=== PATIENT | female | born 1935 | race Caucasian/White ===

== ENCOUNTER → 2018-08-15 08:09 | Outpatient (CLI) | payer MEDICARE, OTHER, SELFPAY ==
[2018-08-15 08:15] LABS: Bacteria Urine None Seen
[2018-08-15 08:31] LABS: Add Manual Diff / Slide Review NO; Basophils Percent Auto 0.8 % (0-2); Eosinophils Percent Auto 2.3 % (2-4); Hemoglobin 12.3 g/dL (12.0-16.0); Lymphocytes Percent Auto 30.7 % (25-40); Mean Corpuscular HGB Conc 34.1 % (30-36); Mean Corpuscular Hemoglobin 31.4 PG (26-34); Mean Corpuscular Volume 92.1 fL (80-100); Monocytes Percent Auto 6.5 % (3-14); Neutrophils Absolute Auto 2800 /uL (3000-5900); Neutrophils Percent Auto 59.7 % (50-75); Platelet Count 196 X10^3/uL (150-400); Red Blood Cell Count 3.91 X10^6/uL (4.0-5.2); Red Cell Distribution Width 13.2 % (11.6-14.8); White Blood Cell Count 4.7 X10^3/uL (4.5-11.0)
[2018-08-15 08:44] LABS: Alanine Aminotransferase 27 IU/L (9-52); Albumin 4.2 g/dL (3.5-5.0); Albumin Globulin Ratio 1.4 (1.0-2.8); Alkaline Phosphatase 75 U/L (38-126); Aspartate Aminotransferase 26 IU/L (14-36); Bilirubin Total 0.5 mg/dL (0.2-1.3); Blood Urea Nitrogen 24 mg/dL (7-17); Carbon Dioxide 30 mmol/L (22-32); Chloride 104 mmol/L (98-107); Cholesterol 147 mg/dL (140-199); Estimated Glomerular Filt Rate 53.2 mL/min (>60); Globulin 2.9 g/dL (1.7-4.1); Glucose 123 mg/dL (80-110); HDL Cholesterol 48 mg/dL (40-60); HEMOLYSIS < 15 (0-50); LDL Cholesterol Calculated 75 mg/dL (<100); Magnesium 1.7 mg/dL (1.6-2.3); Sodium 145 mmol/L (137-145); Total Protein 7.1 g/dL (6.3-8.2); Triglycerides 120 mg/dL (35-150)
[2018-08-15 09:06] LABS: Appearance Urine UA CLEAR; Bilirubin Urine UA NEGATIVE (NEGATIVE); Color Urine UA YELLOW; Glucose Urine UA NEGATIVE (Normal); Ketones Urine UA NEGATIVE (NEGATIVE); Leukocyte Esterase Urine UA TRACE (NEGATIVE); Nitrite Urine UA Negative (Negative); Occult Blood Urine UA 1+ (Negative); Protein Urine UA NEGATIVE (Negative); Urobilinogen Urine UA 0.2 E.U./dL (0.2)
[2018-08-15 09:10] LABS: RBC Urine 1-5/HPF (0-5/HPF)
[2018-08-15 09:11] LABS: Culture Indicated Urine Specimen Cultured; Squamous Epithelial Cell Urine 1-5 /HPF; WBC Urine 5-10/HPF (0-5/HPF)
[2018-08-15 09:53] LABS: Thyroid Stimulating Hormone 2.43 uIU/mL (0.47-4.68)
== END ==
PROVIDERS: PCP Internal Medicine; Visit Provider Internal Medicine
DX: E78.5 Hyperlipidemia, unspecified (principal); G62.9 Polyneuropathy, unspecified; I10 Essential (primary) hypertension; I25.10 Atherosclerotic heart disease of native coronary artery without angina pectoris; K21.9 Gastro-esophageal reflux disease without esophagitis; K58.9 Irritable bowel syndrome, unspecified; R32 Unspecified urinary incontinence; R73.09 Other abnormal glucose
CPT/HCPCS: 36415; 80053; 80061; 81001; 83036; 83735; 84443; 85025; 87086

== ENCOUNTER → 2019-02-07 09:55 | Outpatient (CLI) | payer MEDICARE, OTHER, SELFPAY ==
--- NOTE | 2019-02-07 09:57 | DI.RAD.S_ITS ---
PROCEDURE: XR CHEST 2V INDICATIONS: cough TECHNIQUE: 2 views of the chest were acquired. COMPARISON: [facility], , CHEST 2 VIEW, 04/24/2017, 18:09. FINDINGS: Surgical changes and devices: None. Lungs and pleura: Biapical scars. Lungs are otherwise clear. No pleural effusions or pneumothorax. Mediastinum: Mediastinal contours are normal. Heart size is normal. Bones and chest wall: No suspicious bony abnormalities. Soft tissues appear unremarkable. IMPRESSION: No acute cardiopulmonary disease. Dictated by: Kelby Poewll M.D. on 02/07/2019 at 11:09 Approved by: Kelby Powell M.D. on 02/07/2019 at 11:09
== END ==
PROVIDERS: Family Provider Internal Medicine; PCP Internal Medicine; Visit Provider Nurse Practitioner Family
DX: R05 Cough (principal); J20.9 Acute bronchitis, unspecified
CPT/HCPCS: 71046

== ENCOUNTER 2019-03-09 20:12 | Emergency (ER) | payer MEDICARE, OTHER, SELFPAY ==
[2019-03-09 20:21] VITALS: BP 132/78; PULSE 83; RESP 14; TEMP 36.4; O2SAT 97
[2019-03-09] MEDS: ONDANSETRON 4 MG ODT PO (21:13)
[2019-03-09 21:16] LABS: RBC Urine None Seen (0-5/HPF)
[2019-03-09 21:31] LABS: Bacteria Urine Occasional (0-1); Culture Indicated Urine Specimen Cultured; WBC Urine 0-1/HPF (0-5/HPF)
--- NOTE | 2019-03-09 21:49 | ED_ITS ---
HPI - Nausea/Vomiting/Diarrhea General Chief complaint: Nausea/Vomiting/Diarrhea Stated complaint: H pylori, states she is feeling worse Time Seen by Provider: 03/09/19 21:13 Source: patient Mode of arrival: ambulatory Limitations: no limitations History of Present Illness HPI Narrative: Patient is an 83-year-old female who 5 days ago was started on clarithromycin, amoxicillin, Flagyl and Nexium. She states that this was because she gave a stool sample for evaluation of constipation and a came back positive for H pylori. She states that she has had problems with heartburn or reflux in the past but that is not admission now. She states that since she started taking these medications she has not felt well. She states the specially the Flagyl is causing her issues. Has had some nausea and vomiting. Has had multiple episodes of nonbloody ever foul-smelling diarrhea. Some cramping in her abdomen around the time of the diarrhea. Related Data Home Medications Medication Instructions Recorded Confirmed ASPIRIN (#ASPIR 81) 81 mg PO Q DAY #0 04/02/12 02/07/19 acetaminophen [Tylenol Extra 500 mg PO Q6HP PRN #0 01/10/17 02/07/19 Strength] latanoprost 1 drp [facility] HS #7 01/10/17 02/07/19 amoxicillin 1,000 mg PO BID 03/09/19 03/09/19 clarithromycin 1 tab PO BID 03/09/19 03/09/19 escitalopram oxalate 20 mg PO DAILY 03/09/19 03/09/19 metronidazole 500 mg PO BID 03/09/19 03/09/19 Previous Rx's Medication Instructions Recorded potassium chloride 15 meq PO QDAY #90 cap 01/10/17 isosorbide mononitrate 30 mg PO QAM #90 tab 10/16/17 esomeprazole magnesium 20 mg PO EVERY OTHER DAY #45 cap 02/27/18 chlorthalidone 0 PO QDAY #45 tab 03/06/18 losartan 50 mg PO QDAY #90 tab 10/11/18 metoprolol succinate ER 25 mg 25 mg PO QDAY #90 ter 10/16/18 tablet,extended release 24 hr atorvastatin [Lipitor] 40 mg PO QDAY #90 tab 12/04/18 albuterol sulfate HFA 90 2 puff INHALATION Q6H PRN #8.5 gram 03/14/19 mcg/actuation aerosol inhaler ondansetron HCl [Zofran] 4 mg PO Q6-8H PRN #14 tab 03/09/19 Allergies Allergy/AdvReac Type Severity Reaction Status Date / Time ciprofloxacin Allergy Mild HIVES Verified 03/09/19 20:27 codeine Allergy Mild WELTS Verified 03/09/19 20:27 Review of Systems Constitutional Denies fever(s) and Denies headache(s) ENT Ears, Nose, Mouth, and Throat: Denies headache(s) Cardiovascular Denies chest pain and Denies dyspnea Respiratory Denies dyspnea Gastrointestinal Gastrointestinal: Reports change in bowel habits, Reports diarrhea and Reports nausea Genitourinary Denies dysuria Musculoskeletal Denies myalgias and Denies arthralgias Integumentary/Breasts Denies rash Neurologic Denies headache(s) Hematologic/Lymphatic Denies easy bleeding and Denies easy bruising Allergic/Immunologic Denies urticaria [facility] Medical History Acne (Chronic ~1950) Anxiety (Chronic ~1968) Cataracts, bilateral (Chronic) Chronic back pain (Chronic ~2004) Chronic cough (Chronic ~2013) Coronary artery disease (Chronic ~1995) Depression (Chronic ~1968) Endometriosis (Chronic ~1954) GERD (gastroesophageal reflux disease) (Chronic) Headache (Chronic) Hearing deficit (Chronic) History of urinary incontinence (Chronic ~2013) Hyperlipidemia (Chronic) Hypertension (Chronic ~1995) Hypothyroidism (Chronic) Restless leg syndrome (Chronic) Seasonal allergies (Chronic ~2001) Shoulder pain (Chronic ~2009) Tinnitus (Chronic ~1999) Vision disorder (Chronic) Chicken pox (Resolved ~1939) Measles (Resolved ~1939) Mumps (Resolved ~1939) Rubella (Resolved ~1939) Myocardial infarction (Inactive ~1995) Surgical History Anesthesia (Resolved) History of shoulder surgery (Resolved ~11/2014) History of angioplasty (~1995) History of cataract removal with insertion of prosthetic lens (~2010) History of tonsillectomy (~1946) Status post appendectomy (~1956) Status post breast biopsy (~1952) Status post breast biopsy (~1958) Status post hysterectomy with oophorectomy (~1977) Family History (Updated 06/07/16 @ 00:00 by Conversion Provider) Brother Heart disease Father Heart disease Mother Cancer Grandmother Cancer Sister Heart disease Brother No problems noted. Sister No problems noted. Social History Smoking Status: Never smoker Family History Brother Heart disease Father Heart disease Mother Cancer Grandmother Cancer Sister Heart disease Brother No problems noted. Sister No problems noted. Social History Smoking Status: Never smoker Exam Initial Vital Signs Initial Vital Signs: Vital Signs Temperature 97.6 F 03/09/19 20:21 Pulse Rate 83 03/09/19 20:21 Respiratory Rate 14 03/09/19 20:21 Blood Pressure 132/78 03/09/19 20:21 Pulse Oximetry 97 03/09/19 20:21 Const General: cooperative, healthy appearing, comfortable, well developed and well groomed Orientation: alert, awake and oriented x3 HENMT Head: normal to inspection and normocephalic Resp Effort & Inspection: normal respiratory effort Cardio Rate: regular rate GI Inspection: non-distended Skin Lesions: no lesions Rashes: no rashes Neuro General: alert, awake and oriented x3 Cognition: normal cognition Speech: speech normal Extrem General: normal to inspection and capillary refill normal Psych Appearance: grossly normal and well kempt Scores GCS [place] coma scale eye opening: Spontaneous [place] coma scale verbal response: Orientated [place] coma scale motor response: Obey commands [place] coma scale total score: 15 Course Orders Ordered: ED Orders 03/09/19 21:00 GI Panel (Film Array) Stat 03/09/19 21:03 Urine Culture Stat Urine Microscopic Stat Discontinued Medications Ondansetron HCl (Zofran Odt) 4 mg PO NOW ONE Stop: 03/09/19 21:13 Last Admin: 03/09/19 21:13 Dose: 4 mg Ondansetron HCl (Zofran Odt Prepack) 1 bottle MISC SEEINSTR ONE Stop: 03/09/19 22:53 Last Admin: 03/09/19 23:08 Dose: 1 bottle Vital Signs - 8 hr 03/09/19 20:21 03/09/19 21:53 03/09/19 23:12 Temperature 97.6 F 97.1 F L Pulse Rate 83 64 61 Respiratory Rate 14 17 16 Blood Pressure 132/78 138/65 Blood Pressure [Left Arm] 135/71 Pulse Oximetry 97 97 96 MDM - Nausea/Vomiting/Diarrhea Lab Data Attestation: I reviewed the patient's lab results. Lab Results 03/09/19 03/09/19 Range/Units 21:00 21:03 Urine RBC None seen (0-5/HPF) Urine WBC 0-1/hpf (0-5/HPF) Urine Bacteria Occasional (0-1) (None) Ur Culture Indicated? Specimen cultured Stl C. cayetanensis PCR Not detected (Not Detect) Stool Rotavirus (PCR) Not detected (Not Detect) Stool Adenovirus (PCR) Not detected (Not Detect) Stool Astrovirus (PCR) Not detected (Not Detect) Stool Cryptosporidium PCR Not detected (Not Detect) Stl E.coli Shiga Tox PCR Not detected (Not Detect) St Sh/Enteroin Ecoli PCR Not detected (Not Detect) Stool E coli O157 PCR Not Reportable Stl Enterotoxigenic E PCR Not detected (Not Detect) Stool EPEC (PCR) Not detected (Not Detect) Stl E. histolytica PCR Not detected (Not Detect) Stool Giardia Lamblia PCR Not detected (Not Detect) Stool Sapovirus (PCR) Not detected (Not Detect) Stl P. shigelloides PCR Not detected (Not Detect) St Y.enterocolitica PCR Not detected (Not Detect) Stool Vibrio (PCR) Not detected (Not Detect) Stl Vibrio cholerae PCR Not detected (Not Detect) Stl Enteroaggr Ecoli PCR Not detected (Not Detect) Stl Norovirus GI/GII PCR Not detected (Not Detect) Campylobacter (PCR) Not detected (Not Detect) C. difficile Tox (PCR) Not detected (Not Detect) Salmonella (PCR) Not detected (Not Detect) Urine Dip Bedside Urine Glucose Negative Bedside Urine Bilirubin - Negative Bedside Urine Ketone - Negative Urine Specific [place] 1.030 Bedside Urine Occult Blood - Negative Bedside Urine pH 6.0 Bedside Urine Protein - Negative Bedside Urine Urobilinogen +/- 1mg Bedside Urine Nitrite - Negative Bedside Urine Leukocytes + 70 Esterase MDM Narrative Medical decision making narrative: Patient's stool studies here in the emergency department negative for C diff for other infectious etiology. I do suspect that this diarrhea secondary to the antibiotics that she is on for the H pylori. It seems to be that the Flagyl is the biggest issue for her. There is a regimen that includes clarithromycin amoxicillin and Nexium which is what she is on but minus the Flagyl. Given her extreme discomfort with this medication and the acceptable regiment that does not include Flagyl informed her that she could stop this medication. We did discuss the importance of staying hydrated. informed her that she needed to call her primary doctor on Monday. We discussed return precautions. Both her and her expressed understanding and agreement with plan. Discharge Plan Departure Patient Disposition: Home Clinical Impression: Diarrhea Qualifiers: Diarrhea type: unspecified type Qualified Code(s): R19.7 - Diarrhea, unspecified Discharge Date/Time: 03/09/19 23:12 Interventions: ED Discharge Assessment Last Done: 03/09/19 23:12 Instructions: Diarrhea (Alternative Therapy), Diarrhea Activity Restrictions/Additional Instructions: Use the nausea medication as needed. Be sure to increase your fluid intake. You can stop the metronidazole/Flagyl. I would continue to take the other medication. Call your primary provider's office on Monday. Return to the emergency department for any new or worsening symptoms Prescriptions: New ondansetron HCl [Zofran] 4 mg tablet 4 mg PO Q6-8H PRN (Reason: nausea and vomiting) Qty: 14 RF: 0 No Action albuterol sulfate 90 mcg/actuation HFA aerosol inhaler 2 puff INHALATION Q6H PRN (Reason: shortness of breath or wheezing) Qty: 8.5 RF: 0 ASPIRIN (#ASPIR 81) 81 mg PO Q DAY Qty: 0 RF: 0 potassium chloride 10 MEQ capsule, extended release 15 meq PO QDAY Qty: 90 RF: 3 latanoprost 0.005 % drops 1 drp OPHTH HS Qty: 7 RF: 0 acetaminophen [Tylenol Extra Strength] 500 MG tablet 500 mg PO Q6HP PRNQty: 0 RF: 0 isosorbide mononitrate 30 MG tablet extended release 24 hr 30 mg PO QAM Qty: 90 RF: 3 esomeprazole magnesium 20 MG capsule,delayed release(DR/EC) 20 mg PO EVERY OTHER DAY Qty: 45 RF: 3 chlorthalidone 25 MG tablet PO QDAY Qty: 45 RF: 3 losartan 50 mg tablet 50 mg PO QDAY Qty: 90 RF: 3 metoprolol succinate [Toprol XL] 25 mg tablet extended release 24 hr 25 mg PO QDAY Qty: 90 RF: 3 atorvastatin [Lipitor] 40 mg tablet 40 mg PO QDAY Qty: 90 RF: 0 clarithromycin 500 mg tablet 1 tab PO BID RF: 0 metronidazole 500 mg tablet 500 mg PO BID RF: 0 amoxicillin 500 mg tablet 1,000 mg PO BID RF: 0 escitalopram oxalate 20 mg tablet 20 mg PO DAILY RF: 0 Referrals: Sharonda Cervantes ARNP [Primary Care Provider] -
[2019-03-09 21:53] VITALS: BP 135/71; PULSE 64; RESP 17; O2SAT 97
[2019-03-09 22:42] LABS: Campylobacter Not Detected (Not Detect); Clostridium difficile toxin AB Not Detected (Not Detect); Plesiomonsa shigelloides Not Detected (Not Detect); Salmonella Not Detected (Not Detect); Vibrio Not Detected (Not Detect); Vibrio cholerae Not Detected (Not Detect)
[2019-03-09 22:43] LABS: Adenovirus F 40/41 Not Detected (Not Detect); Astrovirus Not Detected (Not Detect); Cryptosporidium Not Detected (Not Detect); Cyclospora cayetanensis Not Detected (Not Detect); Entamoeba histolytica Not Detected (Not Detect); Enteroaggregative E.coli Not Detected (Not Detect); Enteropathogenic E.coli Not Detected (Not Detect); Enterotoxigenic E.coli It/st Not Detected (Not Detect); Giardia lamblia Not Detected (Not Detect); Norovirus GI/GII Not Detected (Not Detect); Rotavirus A Not Detected (Not Detect); Sapovirus Not Detected (Not Detect); Shiga-like toxin-prod E.coli Not Detected (Not Detect); Shigella/Enteroinvasive E.coli Not Detected (Not Detect); Yersinia enterocolitica Not Detected (Not Detect)
[2019-03-09] MEDS: ONDANSETRON 4 MG ODT PREPACK 1 BOTTLE MISC (23:08)
[2019-03-09 23:12] VITALS: BP 138/65; PULSE 61; RESP 16; TEMP 36.2; O2SAT 96
== END 2019-03-09 23:12 | disposition home or self-care (01) ==
PROVIDERS: Emergency Provider Emergency Medicine; PCP Internal Medicine
DX: R19.7 Diarrhea, unspecified (principal); R11.2 Nausea with vomiting, unspecified
CPT/HCPCS: 81003; 81015; 87086; 87507; 99282; 99283

== ENCOUNTER → 2020-01-09 13:56 | Outpatient (CLI) | payer MEDICARE, OTHER, SELFPAY ==
--- NOTE | 2020-01-09 | DI.CT.S_ITS ---
PROCEDURE: CT CHEST WO CON INDICATIONS: Cough TECHNIQUE: Noncontrast 5 mm thick sections acquired from the pulmonary apices to the posterior costophrenic angles. 1 mm lung window, 5 mm thick coronal and sagittal and 7 mm axial MIP reformats were then acquired. For radiation dose reduction, the following was used: automated exposure control, adjustment of mA and/or kV according to patient size. COMPARISON: [facility], CT, CHEST/ABDOMEN WITHOUT CONTRAST, 12/04/2015, 8:28. FINDINGS: Image quality: Excellent. Lungs and pleura: No acute air space opacities. No pleural effusions or pneumothorax. Central and peripheral airways are patent and normal in caliber. Mediastinum: Heart size is normal. No pericardial effusion. Advanced coronary artery calcifications. No mediastinal adenopathy by size criteria. Thoracic aorta and central pulmonary arteries are normal in size. Esophagus is normal in caliber. No hiatal hernia. Bones and chest wall: No suspicious bony lesions. No vertebral body compression fractures. No axillary or supraclavicular adenopathy by size criteria. Thyroid gland is unremarkable. Abdomen: Visualized upper abdominal solid organs and bowel loops appear normal in the absence of contrast. IMPRESSION: 1. No evidence acute pulmonary process. 2. No findings suspicious for malignancy. 3. Advanced coronary artery calcifications. Dictated by: Brian Cottrell M.D. on 01/09/2020 at 17:20 Approved by: Brian Cottrell M.D. on 01/09/2020 at 17:23
== END ==
PROVIDERS: PCP Internal Medicine; Referring Provider Internal Medicine; Visit Provider Internal Medicine
DX: R05 Cough (principal); R06.2 Wheezing; I25.10 Atherosclerotic heart disease of native coronary artery without angina pectoris
CPT/HCPCS: 71250

== ENCOUNTER → 2020-07-28 11:24 | Outpatient (CLI) | payer MEDICARE, OTHER, SELFPAY ==
--- NOTE | 2020-07-28 | DI.MRI.S_ITS ---
PROCEDURE: MR HEAD/BRAIN WO/W CON INDICATIONS: Other hallucinations,Headache TECHNIQUE: Noncontrast axial T1 spin echo, axial T2 fast spin echo, sagittal and axial FLAIR, coronal T2 fast spin echo, axial gradient echo, axial diffusion and ADC through the brain. After the administration of contrast, axial and coronal T1 spin echo with fat saturation through the brain. COMPARISON: [facility], MR, BRAIN W&WO CONTRAST, 01/14/2016, 15:44. [facility], MR, BRAIN WITH AND WITHOUT CONTRAS, 01/12/2007, 8:35. FINDINGS: Image quality: Excellent. CSF spaces: Basal cisterns are patent. No extra-axial fluid collections. Ventricles are normal in size and shape. Brain: No midline shift. No intracranial bleeds or masses. No abnormal intracranial enhancement. There is cerebral volume loss for age. There is periventricular white matter chronic small vessel ischemic change. The brainstem appears normal. Diffusion-weighted images demonstrate no acute ischemic insults. No chronic ischemic insults. Normal intravascular flow voids are present. Skull and face: Calvarial marrow is normal in signal. Orbits appear normal. Sinuses: Sinuses and mastoids appear clear. IMPRESSION: Mild microvascular atherosclerotic change in the deep white matter of each hemisphere, no area of stroke or prior ischemic injury is seen. There is no identified evidence of mass lesion or brain inflammation. Dictated by: Kj Hollingsworth M.D. on 07/28/2020 at 12:35 Approved by: Kj Hollingsworth M.D. on 07/28/2020 at 12:36
== END ==
PROVIDERS: PCP Internal Medicine; Referring Provider Internal Medicine; Visit Provider Internal Medicine
DX: R44.2 Other hallucinations (principal); R51 Headache
CPT/HCPCS: 70553

== ENCOUNTER → 2021-03-04 10:20 | Outpatient (CLI) | payer MEDICARE, OTHER, SELFPAY ==
--- NOTE | 2021-03-04 | DI.RAD.S_ITS ---
PROCEDURE: XR CERVICAL SPINE 2V OR 3V INDICATIONS: NECK PAIN TECHNIQUE: 3 view(s) of the cervical spine were acquired. COMPARISON: [facility], RG, XR C-SPINE 4-6V, 02/22/2006, 10:24. [facility], MR, C-SPINE WITHOUT CONTRAST, 06/08/2017, 14:59. FINDINGS: Bones: No fractures or dislocations to the C7 level. The lateral masses of C1 appear intact on the odontoid view. No suspicious bony lesions. There is moderate degenerative disc disease at C4-C5, C5-C6 and C6-C7. Bilateral facet arthropathy, moderate at C3-C4 and C4-C5. Soft tissues: No prevertebral soft tissue swelling. IMPRESSION: 1. Moderate degenerative disc and facet disease in cervical spine. Dictated by: Kelby Powell M.D. on 03/04/2021 at 13:57 Approved by: Kelby Powell M.D. on 03/04/2021 at 14:18
== END ==
PROVIDERS: PCP Internal Medicine; Referring Provider Internal Medicine; Visit Provider Internal Medicine
DX: M50.321 Other cervical disc degeneration at C4-C5 level (principal)
CPT/HCPCS: 72040

== ENCOUNTER → 2021-09-21 09:50 | Outpatient (CLI) | payer MEDICARE, OTHER, SELFPAY ==
[2021-09-21 12:12] LABS: Hemoglobin 11.7 g/dL (12.0-16.0); Mean Corpuscular HGB Conc 33.5 % (30-36); Mean Corpuscular Hemoglobin 31.5 PG (26-34); Mean Corpuscular Volume 94.1 fL (80-100); Platelet Count 191 X10^3/uL (150-400); Red Blood Cell Count 3.72 X10^6/uL (4.0-5.2); Red Cell Distribution Width 13.6 % (11.6-14.8); White Blood Cell Count 4.9 X10^3/uL (4.5-11.0)
[2021-09-21 12:50] LABS: Blood Urea Nitrogen 19 mg/dL (7-17); Calcium 9.9 mg/dL (8.4-10.2); Carbon Dioxide 30 mmol/L (22-32); Chloride 102 mmol/L (98-107); Glucose 107 mg/dL (80-110); HEMOLYSIS < 15 (0-50); Potassium 4.2 mmol/L (3.4-5.1); Sodium 140 mmol/L (137-145)
== END ==
PROVIDERS: PCP Internal Medicine; Referring Provider Internal Medicine Cardiovascular Disease; Visit Provider Internal Medicine Cardiovascular Disease
DX: R06.00 Dyspnea, unspecified (principal)
CPT/HCPCS: 36415; 80048; 85027

== ENCOUNTER → 2022-02-23 10:47 | Outpatient (CLI) | payer MEDICARE, OTHER, SELFPAY ==
--- NOTE | 2022-02-23 | DI.RAD.S_ITS ---
PROCEDURE: XR HIP W PEL IF DONE RT 2V INDICATIONS: RIGHT HIP PAIN/ LOW BACK PAIN TECHNIQUE: AP pelvis with lateral view(s) of the right hip(s). COMPARISON: None. FINDINGS: Bones: No fractures or dislocations. Pelvic ring appears intact. No suspicious bony lesions. Moderate to severe bilateral degenerative hip joint space narrowing. No erosions. Soft tissues: The visualized bowel gas pattern is normal. No suspicious soft tissue calcifications. IMPRESSION: Moderate bilateral arthritic narrowing. Dictated by: Annetta Monahan M.D. on 02/23/2022 at 17:05 Approved by: Annetta Monahan M.D. on 02/23/2022 at 17:09
--- NOTE | 2022-02-23 | DI.RAD.S_ITS ---
PROCEDURE: XR LUMBAR SPINE 2-3V INDICATIONS: RIGHT HIP PAIN/ LOW BACK PAIN TECHNIQUE: 3 views of the lumbar spine were acquired. COMPARISON: [facility], , L-SPINE WITHOUT CONTRAST, 04/02/2013, 14:05. FINDINGS: Bones: 5 [id number] vertebrae are present. There is grade 1 L4 on L5 anterolisthesis which is unchanged when compared with the MRI from 2013. Degenerative changes including intervertebral disc space narrowing, endplate sclerosis, and osteophytosis are redemonstrated from L3-S1. No vertebral body compression fractures. No suspicious bony lesions. Soft tissues: Dense atheromatous calcifications are present throughout the abdominal aorta. IMPRESSION: Degenerative change and aortic atherosclerosis. Dictated by: Annalisa Mclaughlin M.D. on 02/23/2022 at 11:44 Approved by: Annalisa Mclaughlin M.D. on 02/23/2022 at 12:25
== END ==
PROVIDERS: PCP Internal Medicine; Referring Provider Internal Medicine; Visit Provider Internal Medicine
DX: M54.50 Low back pain, unspecified (principal); M25.551 Pain in right hip; M47.26 Other spondylosis with radiculopathy, lumbar region; I70.0 Atherosclerosis of aorta
CPT/HCPCS: 72100; 73502

== ENCOUNTER → 2022-04-27 12:10 | Outpatient (CLI) | payer MEDICARE, OTHER, SELFPAY ==
--- NOTE | 2022-04-27 12:14 | DI.RAD.S_ITS ---
PROCEDURE: XR CHEST 2V INDICATIONS: CHEST PAIN TECHNIQUE: 2 views of the chest were acquired. COMPARISON: [facility], CR, XR CHEST 2V, 02/07/2019, 10:08. FINDINGS: Surgical changes and devices: None. Lungs and pleura: Lungs are clear. No pleural effusions or pneumothorax. Mediastinum: Mediastinal contours are normal. Heart size is normal. Bones and chest wall: No suspicious bony abnormalities. Soft tissues appear unremarkable. IMPRESSION: No acute pulmonary process. Dictated by: Annetta Monahan M.D. on 04/27/2022 at 19:03 Approved by: Annetta Monahan M.D. on 04/27/2022 at 19:03
== END ==
PROVIDERS: PCP Internal Medicine; Referring Provider Internal Medicine; Visit Provider Internal Medicine
DX: R06.02 Shortness of breath (principal); R07.9 Chest pain, unspecified
CPT/HCPCS: 71046

== ENCOUNTER → 2022-05-06 07:59 | Outpatient (CLI) | payer MEDICARE, OTHER, SELFPAY ==
[2022-05-06 08:53] LABS: COVID19 -Nasal RAPID Negative (Negative)
== END ==
PROVIDERS: PCP Internal Medicine; Referring Provider Internal Medicine; Visit Provider Internal Medicine
DX: Z20.822 Contact with and (suspected) exposure to COVID-19 (principal)
CPT/HCPCS: 87635; C9803

== ENCOUNTER → 2022-05-06 08:00 | Outpatient (CLI) | payer MEDICARE, OTHER, SELFPAY ==
--- NOTE | 2022-05-11 09:21 | PM.PFT.1 ---
Pulmonary Function Test Referral & Results Date Patient Seen: 05/06/22 Requesting provider: Sharonda Cervantes Results: The spirometry demonstrates an FVC of 1.40 L which is 64% of predicted. The FEV1 was measured at 1.07 L which is 67% of predicted. The FEV1/FVC ratio was 76 which is 104% of predicted. Following the administration of bronchodilator there was no appreciable change. Lung volumes show an SVC of 1.44 L which is 61% of predicted. The diffusing capacity was measured at 11.48 which is 53% of predicted. No hemoglobin value was provided, so no correction for potential anemia could be made, if appropriate. The maximum voluntary ventilation was reduced Interpretation: This study demonstrates perhaps mild obstructive lung disease based on reduction in FEV1, although FEV1/FVC ratio is preserved. Shape of flow volume loop does support the presence of mild obstructive lung disease however there is no evidence of benefit after bronchodilator administration There is also moderate reduction in lung volumes suggesting [id number] restrictive lung disease which may well explain the abnormality in the FEV1 above Compared to PFTs performed in July 2013, current study shows decline in FEV1, lung volumes, and diffusing capacity showing a progression of patient's presumed COPD Clinical correlation suggested
== END ==
PROVIDERS: PCP Internal Medicine; Referring Provider Internal Medicine; Visit Provider Internal Medicine
DX: R06.02 Shortness of breath (principal); Z20.822 Contact with and (suspected) exposure to COVID-19; J98.8 Other specified respiratory disorders
CPT/HCPCS: 87635; 94060; 94726; 94729; C9803

== ENCOUNTER 2022-06-20 10:15 | Outpatient (RCR) | payer MEDICARE, OTHER, SELFPAY | END 2022-06-20 14:15 | LOC: CAR 10:15 | PROVIDERS: PCP Internal Medicine; Referring Provider Family Medicine; Visit Provider Family Medicine | DX: I20.9 Angina pectoris, unspecified (principal) | CPT/HCPCS: 93798 ==

== ENCOUNTER → 2022-12-15 09:43 | Outpatient (CLI) | payer MEDICARE, OTHER, SELFPAY | PROVIDERS: PCP Internal Medicine; Referring Provider Internal Medicine; Visit Provider Internal Medicine | DX: M85.852 Other specified disorders of bone density and structure, left thigh (principal); Z13.820 Encounter for screening for osteoporosis; Z78.0 Asymptomatic menopausal state; K63.9 Disease of intestine, unspecified; Z90.710 Acquired absence of both cervix and uterus | CPT/HCPCS: 77080 ==

== ENCOUNTER 2023-04-07 16:52 | Emergency (ER) | payer MEDICARE, OTHER, SELFPAY ==
[2023-04-07] VITALS (11 sets, daily range): BP systolic 145–176; BP diastolic 60–107; PULSE 60–67; RESP 18–29; TEMP 38.2; O2SAT 94–97; BMI 29.0
--- NOTE | 2023-04-07 17:02 | DI.RAD.S_ITS ---
PROCEDURE: XR CHEST 1V INDICATIONS: suspected sepsis TECHNIQUE: One view of the chest was acquired. COMPARISON: [facility], CR, XR CHEST 2V, 04/27/2022, 12:04. FINDINGS: Surgical changes and devices: None. Lungs and pleura: An incomplete inspiratory result is noted, causing a crowded appearance to the lung markings. No focal infiltrates are seen. No pneumothorax or significant pleural effusions are seen. Mediastinum: Mediastinal contours appear normal. Heart size is normal. Atherosclerotic calcification of the aortic arch is noted. Bones and chest wall: No suspicious bony lesions. Age-appropriate bony degenerative changes are seen. Overlying soft tissues appear unremarkable. IMPRESSION: Limited portable chest examination, without a significant cardiopulmonary abnormality identified. Dictated by: Mike Barr M.D. on 04/07/2023 at 17:10 Approved by: Mike Barr M.D. on 04/07/2023 at 17:10
--- NOTE | 2023-04-07 17:02 | DI.CT.S_ITS ---
PROCEDURE: CT HEAD/BRAIN WO CON INDICATIONS: headache x 4 days, htn, change in sensation on R, unsteady TECHNIQUE: Noncontrast 4.5 mm thick angled axial sections acquired from the foramen magnum to the vertex, with coronal and sagittal reformats. For radiation dose reduction, the following was used: automated exposure control, adjustment of mA and/or kV according to patient size. COMPARISON: [facility], CR, XR CHEST 1V, 04/07/2023, 17:04. [facility], MR, BRAIN W&WO CONTRAST, 01/14/2016, 15:44. FINDINGS: Image quality: Excellent. CSF spaces: Basal cisterns are patent. No extra-axial fluid collections. The ventricles are relatively prominent. Brain: No intracranial bleeds or masses. There is cerebral volume loss for age, with resultant ventricular and sulcal prominence. There are periventricular and deep white matter chronic small vessel ischemic changes. There is intracranial internal carotid artery atherosclerosis. Skull and face: Calvarium and visualized facial bones appear intact, without suspicious lesions. Sinuses: Visualized sinuses and mastoids are clear. IMPRESSION: No acute intracranial hemorrhage is seen. Relatively prominent lateral ventricles, given the degree of sulcal atrophy. Please consider normal pressure hydrocephalus. Dictated by: Mike Barr M.D. on 04/07/2023 at 16:55 Approved by: Mike Barr M.D. on 04/07/2023 at 16:57
[2023-04-07 17:26] LABS: Add Manual Diff / Slide Review NO; Basophils Absolute Auto 100 /uL (0-100); Basophils Percent Auto 0.8 % (0-2); Eosinophils Absolute Auto 100 /uL (0-450); Eosinophils Percent Auto 1.6 % (2-4); Hematocrit 36.4 % (36-46); Hemoglobin 12.5 g/dL (12.0-16.0); Lymphocytes Absolute Auto 1800 /uL (1100-4500); Mean Corpuscular HGB Conc 34.3 % (30-36); Mean Corpuscular Hemoglobin 31.9 PG (26-34); Monocytes Absolute Auto 500 /uL (0-900); Monocytes Percent Auto 6.6 % (3-14); Neutrophils Absolute Auto 4900 /uL (1500-7000); Platelet Count 189 X10^3/uL (150-400); Red Blood Cell Count 3.91 X10^6/uL (4.0-5.2); Red Cell Distribution Width 13.7 % (11.6-14.8); White Blood Cell Count 7.3 X10^3/uL (4.5-11.0)
[2023-04-07 17:36] LABS: PTT Partial Thromboplastin Tim 28 SECONDS (26-36)
[2023-04-07 17:37] LABS: Alanine Aminotransferase 22 IU/L (<35); Albumin 4.5 g/dL (3.5-5.0); Albumin Globulin Ratio 1.4 (1.0-2.8); Alkaline Phosphatase 83 U/L (38-126); Aspartate Aminotransferase 27 IU/L (14-36); BUN Creatinine Ratio 18.4 (6-22); Bilirubin Total 0.8 mg/dL (0.2-1.3); Blood Urea Nitrogen 19 mg/dL (7-17); Calcium 9.4 mg/dL (8.4-10.2); Carbon Dioxide 28 mmol/L (22-32); Chloride 97 mmol/L (98-107); Estimated Glomerular Filt Rate 53 mL/min (>60); Globulin 3.2 g/dL (1.7-4.1); Glucose 109 mg/dL (80-110); HEMOLYSIS 32 (0-50); Lipase 158 U/L (23-300); Potassium 3.9 mmol/L (3.4-5.1); Sodium 136 mmol/L (137-145); Total Protein 7.7 g/dL (6.3-8.2)
[2023-04-07 17:38] LABS: Lactate (Lactic Acid) 1.6 mmol/L (0.7-2.1)
[2023-04-07 17:54] LABS: Procalcitonin 0.05 ng/mL (<0.5)
[2023-04-07] MEDS: SODIUM CHLORIDE 0.9% 1,000 ML 1000 ML IV (18:25)
[2023-04-07 18:45] LABS: Adenovirus Not Detected (Not Detect); B. parapertussis Not Detected (Not Detecte); Bordetella pertussis Not Detected (Not Detecte); Chlamydophila pneumoniae Not Detected (Not Detect); Coronavirus 229E Not Detected (Not Detect); Coronavirus HKU1 Not Detected (Not Detect); Coronavirus NL 63 Not Detected (Not Detect); Coronavirus OC43 Not Detected (Not Detect); Human Metapneumovirus Not Detected (Not Detect); Human Rhinovirus/Enterovirus Not Detected (Not Detect); Influenza A Not Detected (Not Detect); Influenza B Not Detected (Not Detect); Mycoplasma pneumoniae Not Detected (Not Detect); Parainfluenza Virus 1 Not Detected (Not Detect); Parainfluenza Virus 2 Not Detected (Not Detect); Parainfluenza Virus 3 Not Detected (Not Detect); Parainfluenza Virus 4 Not Detected (Not Detect); Respiratory Syncytial Virus Not Detected (Not Detect); SARS- CoV-2 Not Detected (Not Detecte)
--- NOTE | 2023-04-07 19:23 | ED_ITS ---
HPI - Fever General Chief Complaint: Fever Stated Complaint: Headache Time Seen by Provider: 04/07/23 18:00 Source: patient Mode of arrival: Ambulatory History of Present Illness HPI Narrative: Patient is a 87-year-old history of hyperlipidemia hypertension coronary artery disease presents today from PCP with ongoing headache and fever. She reports that she has had headache for the last 5 days. It is kind of a dull ache. Minimal sensitive to light and noise. Headaches do not sound abnormal for her but this 1 seems to have lost a little bit longer. She then started having a fever for about 3 days. Her neck was hurting today she had pain while moving it but that has now resolved. She denies any cough or chest pain. No abdominal pain nausea or vomiting. She does have frequent painful urination. Related Data Home Medications Medication Instructions Recorded Confirmed ASPIRIN (#ASPIR 81) 81 mg PO Q DAY ##0 04/02/12 02/07/19 acetaminophen 500 mg tablet 500 mg PO Q6HP PRN ##0 01/10/17 02/07/19 (Tylenol Extra Strength) latanoprost 0.005 % eye drops 1 drp [facility] HS ##7 01/10/17 02/07/19 amoxicillin 500 mg tablet 1,000 mg PO BID 03/09/19 03/09/19 clarithromycin 500 mg tablet 1 tab PO BID 03/09/19 03/09/19 escitalopram oxalate 20 mg tablet 20 mg PO DAILY 03/09/19 03/09/19 metronidazole 500 mg tablet 500 mg PO BID 03/09/19 03/09/19 Previous Rx's Medication Instructions Recorded potassium chloride 10 mEq 15 meq PO QDAY #90 caps 01/10/17 capsule,extended release isosorbide mononitrate 30 mg 30 mg PO QAM #90 tabs 10/16/17 tablet,extended release 24 hr esomeprazole magnesium 20 mg 20 mg PO EVERY OTHER DAY #45 caps 02/27/18 capsule,delayed release chlorthalidone 25 mg tablet 0 PO QDAY #45 tabs 03/06/18 losartan 50 mg tablet 50 mg PO QDAY #90 tabs 10/11/18 metoprolol succinate 25 mg 25 mg PO QDAY ##90 10/16/18 tablet,extended release 24 hr (Toprol XL) atorvastatin 40 mg tablet (Lipitor) 40 mg PO QDAY #90 tabs 12/04/18 albuterol sulfate 90 mcg/actuation 2 puff inhalation Q6H PRN 02/07/19 aerosol inhaler shortness of breath or wheezing #8.5 grams ondansetron HCl 4 mg tablet 4 mg PO Q6-8H PRN nausea and 03/09/19 (Zofran) vomiting #14 tabs Allergies Allergy/AdvReac Type Severity Reaction Status Date / Time ciprofloxacin Allergy Mild HIVES Verified 04/07/23 17:12 codeine Allergy Mild WELTS Verified 04/07/23 17:12 Review of Systems Review of Systems ROS Unobtainable: All systems reviewed & are unremarkable except as noted in HPI and below Patient History Medical History (Updated 04/07/23 @ 21:02 by Harmony Luna DO) Acne (~1950) Anxiety (~1968) Cataracts, bilateral Chicken pox (~1939) Chronic back pain (~2004) Chronic cough (~2013) Coronary artery disease (~1995) Depression (~1968) Endometriosis (~1954) GERD (gastroesophageal reflux disease) Headache Hearing deficit History of urinary incontinence (~2013) Hyperlipidemia Hypertension (~1995) Hypothyroidism Measles (~1939) Mumps (~1939) Myocardial infarction (~1995) Restless leg syndrome Rubella (~1939) Seasonal allergies (~2001) Shoulder pain (~2009) Tinnitus (~1999) Vision disorder Surgical History Anesthesia History of angioplasty (~1995) History of cataract removal with insertion of prosthetic lens (~2010) History of shoulder surgery (~11/2014) History of tonsillectomy (~1946) Status post appendectomy (~1956) Status post breast biopsy (~1952) Status post breast biopsy (~1958) Status post hysterectomy with oophorectomy (~1977) Family History Brother Heart disease Father Heart disease Mother Cancer Grandmother Cancer Sister Heart disease Brother No problems noted. Sister No problems noted. Social History Smoking Status: Never smoker Smoking Status: Never smoker alcohol intake frequency: 0-2 drinks per day Substance Use Type: does not use Exam Initial Vital Signs Initial Vital Signs: Vital Signs Temperature 100.8 F H 04/07/23 17:05 Pulse Rate 62 04/07/23 17:05 Respiratory Rate 18 04/07/23 17:05 Blood Pressure 159/75 H 04/07/23 17:05 Pulse Oximetry 97 04/07/23 17:05 Oxygen Delivery Method Room Air 04/07/23 17:05 GENERAL: Alert 87-year-old female appears weak but and in [no acute] distress. HEENT: Head atraumatic,EOMI, pupils reactive, face symmetric, [moist] mucous membranes, neck is supple no meningeal signs CARDIOVASCULAR: Regular rate and rhythm without murmurs, rubs or gallops. RESPIRATORY: Breath sounds equal bilaterally, no wheezes rales or rhonchi. ABDOMEN: Soft, nontender. Normoactive bowel sounds all 4 quadrants. No guarding or rebound. EXTREMITIES: Normal range of motion, no clubbing or edema. Neurovascularly intact NEUROLOGICAL: Alert and oriented x4.Normal gait and speech. Student Counselor strength equal bilaterally SKIN: Warm, dry, no laceration, no petechiae, no rashes or lesions. Course Orders Ordered: Discontinued Medications Sodium Chloride (Normal Saline 0.9%) 1,000 mls @ 1,000 mls/hr IV BOLUS ONE Stop: 04/07/23 18:00 Last Infusion: 04/07/23 21:07 Dose: 0 mls/hr Documented By: Admin: 04/07/23 18:25 Dose: 1,000 mls/hr Documented By: HOLLY Ketorolac Tromethamine (Ketorolac 30 Mg/Ml Vial) 15 mg IV NOW ONE Stop: 04/07/23 19:47 Last Admin: 04/07/23 19:59 Dose: 15 mg Documented By: DARIEL Ondansetron HCl (Ondansetron 4 Mg/2 Ml Inj) 4 mg IV NOW PRN PRN Reason: Nausea And Vomiting Vital Signs Vital signs: Vital Signs - 8 hr 04/07/23 17:05 Temperature 100.8 F H Pulse Rate 62 Respiratory Rate 18 Blood Pressure 159/75 H Pulse Oximetry 97 Oxygen Delivery Method Room Air MDM - Fever Lab Data 04/07/23 17:15 04/07/23 17:15 Labs: Lab Results 04/07/23 04/07/23 04/07/23 Range/Units 17:15 17:15 17:15 WBC 7.3 (4.5-11.0) X10^3/uL RBC 3.91 L (4.0-5.2) X10^6/uL Hgb 12.5 (12.0-16.0) g/dL Hct 36.4 (36-46) % MCV 93.0 (80-100) fL MCH 31.9 (26-34) PG MCHC 34.3 (30-36) % RDW 13.7 (11.6-14.8) % Plt Count 189 (150-400) X10^3/uL Neut % (Auto) 67.0 (50-75) % Lymph % (Auto) 24.0 L (25-40) % [place] % (Auto) 6.6 (3-14) % Eos % (Auto) 1.6 L (2-4) % Baso % (Auto) 0.8 (0-2) % Neut # (Auto) 4900 (7413-9899) /uL Lymph # (Auto) 1800 (1254-3097) /uL [place] # (Auto) 500 (0-900) /uL Eos # (Auto) 100 (0-450) /uL Baso # (Auto) 100 (0-100) /uL PT 12.0 (10.1-12.7) SECONDS INR 1.0 (0.9-1.3) APTT 28 (26-36) SECONDS Sodium 136 L (137-145) mmol/L Potassium 3.9 (3.4-5.1) mmol/L Chloride 97 L (98-107) mmol/L Carbon Dioxide 28 (22-32) mmol/L BUN 19 H (7-17) mg/dL Creatinine 1.03 (0.52-1.04) mg/dL Estimated GFR 53 L (>60) mL/min BUN/Creatinine Ratio 18.4 (6-22) Glucose 109 (80-110) mg/dL Lactate (0.7-2.1) mmol/L Calcium 9.4 (8.4-10.2) mg/dL Total Bilirubin 0.8 (0.2-1.3) mg/dL AST 27 (14-36) IU/L ALT 22 (<35) IU/L Alkaline Phosphatase 83 (38-126) U/L Total Protein 7.7 (6.3-8.2) g/dL Albumin 4.5 (3.5-5.0) g/dL Globulin 3.2 (1.7-4.1) g/dL Albumin/Globulin Ratio 1.4 (1.0-2.8) Lipase 158 (23-300) U/L Procalcitonin 0.05 (<0.5) ng/mL Urine RBC (0-5/HPF) Urine WBC (0-5/HPF) Ur Squamous Epith Cells (0-5/HPF) Urine Bacteria (None) Ur Culture Indicated? Chlamy pneumoniae PCR (Not Detect) Adenovirus (PCR) (Not Detect) B. pertussis DNA (PCR) (Not Detecte) B.parapertussis DNA PCR (Not Detecte) Coronavirus OC43 (PCR) (Not Detect) Coronavirus HKU1 (PCR) (Not Detect) Coronavirus 229E (PCR) (Not Detect) SARS-CoV-2 (PCR) (Not Detecte) Coronavirus NL63 (PCR) (Not Detect) Human Metapneumovir PCR (Not Detect) Influenza Type A (PCR) (Not Detect) Influenza Type B (PCR) (Not Detect) M. pneumoniae (PCR) (Not Detect) Parainfluenza 1 (PCR) (Not Detect) Parainfluenza 2 (PCR) (Not Detect) Parainfluenza 3 (PCR) (Not Detect) Parainfluenza 4 (PCR) (Not Detect) RSV (PCR) (Not Detect) Entero/Rhino (PCR) (Not Detect) 04/07/23 04/07/23 04/07/23 Range/Units 17:15 17:15 20:30 WBC (4.5-11.0) X10^3/uL RBC (4.0-5.2) X10^6/uL Hgb (12.0-16.0) g/dL Hct (36-46) % MCV (80-100) fL MCH (26-34) PG MCHC (30-36) % RDW (11.6-14.8) % Plt Count (150-400) X10^3/uL Neut % (Auto) (50-75) % Lymph % (Auto) (25-40) % [place] % (Auto) (3-14) % Eos % (Auto) (2-4) % Baso % (Auto) (0-2) % Neut # (Auto) (8822-3981) /uL Lymph # (Auto) (8813-7631) /uL [place] # (Auto) (0-900) /uL Eos # (Auto) (0-450) /uL Baso # (Auto) (0-100) /uL PT (10.1-12.7) SECONDS INR (0.9-1.3) APTT (26-36) SECONDS Sodium (137-145) mmol/L Potassium (3.4-5.1) mmol/L Chloride (98-107) mmol/L Carbon Dioxide (22-32) mmol/L BUN (7-17) mg/dL Creatinine (0.52-1.04) mg/dL Estimated GFR (>60) mL/min BUN/Creatinine Ratio (6-22) Glucose (80-110) mg/dL Lactate 1.6 (0.7-2.1) mmol/L Calcium (8.4-10.2) mg/dL Total Bilirubin (0.2-1.3) mg/dL AST (14-36) IU/L ALT (<35) IU/L Alkaline Phosphatase (38-126) U/L Total Protein (6.3-8.2) g/dL Albumin (3.5-5.0) g/dL Globulin (1.7-4.1) g/dL Albumin/Globulin Ratio (1.0-2.8) Lipase (23-300) U/L Procalcitonin (<0.5) ng/mL Urine RBC None seen (0-5/HPF) Urine WBC 1-5/hpf (0-5/HPF) Ur Squamous Epith Cells 5-10 /hpf H (0-5/HPF) Urine Bacteria Few (2-10) H (None) Ur Culture Indicated? Cult not indicated Chlamy pneumoniae PCR Not detected (Not Detect) Adenovirus (PCR) Not detected (Not Detect) B. pertussis DNA (PCR) Not detected (Not Detecte) B.parapertussis DNA PCR Not detected (Not Detecte) Coronavirus OC43 (PCR) Not detected (Not Detect) Coronavirus HKU1 (PCR) Not detected (Not Detect) Coronavirus 229E (PCR) Not detected (Not Detect) SARS-CoV-2 (PCR) Not detected (Not Detecte) Coronavirus NL63 (PCR) Not detected (Not Detect) Human Metapneumovir PCR Not detected (Not Detect) Influenza Type A (PCR) Not detected (Not Detect) Influenza Type B (PCR) Not detected (Not Detect) M. pneumoniae (PCR) Not detected (Not Detect) Parainfluenza 1 (PCR) Not detected (Not Detect) Parainfluenza 2 (PCR) Not detected (Not Detect) Parainfluenza 3 (PCR) Not detected (Not Detect) Parainfluenza 4 (PCR) Not detected (Not Detect) RSV (PCR) Not detected (Not Detect) Entero/Rhino (PCR) Not detected (Not Detect) Urine Dip Bedside Urine Glucose Negative Bedside Urine Bilirubin - Negative Bedside Urine Ketone - Negative Urine Specific [place] 1.025 Bedside Urine Occult Blood - Negative Bedside Urine pH 6 Bedside Urine Protein - Negative Bedside Urine Urobilinogen - Negative Bedside Urine Nitrite - Negative Bedside Urine Leukocytes +/- 15 Esterase Imaging Data Chest x-ray: Radiologist's Impression: PROCEDURE:? XR CHEST 1V ? INDICATIONS:? suspected sepsis ? TECHNIQUE:? One view of the chest was acquired.? ? COMPARISON:? [facility], , XR CHEST 2V, 04/27/2022, 12:04. ? FINDINGS:? ? Surgical changes and devices:? None.? ? Lungs and pleura:? An incomplete inspiratory result is noted, causing a crowded appearance to the lung markings.? No focal infiltrates are seen.? No pneumothorax or significant pleural effusions are seen. ? ? Mediastinum:? Mediastinal contours appear normal.? Heart size is normal.? Atherosclerotic calcification of the aortic arch is noted.? ? Bones and chest wall:? No suspicious bony lesions.? Age-appropriate bony degene rative changes are seen. ? Overlying soft tissues appear unremarkable.? ? ? IMPRESSION:? ? Limited portable chest examination, without a significant cardiopulmonary abnormality identified.? ? ? Dictated by: Mike Barr M.D. on 04/07/2023 at 17:10 ? ? Approved by: Mike Barr M.D. on 04/07/2023 at 17:10 ? CT scan - head: Radiologist's Impression: PROCEDURE:? CT HEAD/BRAIN WO CON ? INDICATIONS:? headache x 4 days, htn, change in sensation on R, unsteady ? TECHNIQUE:? Noncontrast 4.5 mm thick angled axial sections acquired from the foramen magnum to the vertex, with coronal and sagittal reformats.? For radiation dose reduction, the following was used:? automated exposure control, adjustment of mA and/or kV according to patient size.? ? COMPARISON:? [facility], CR, XR CHEST 1V, 04/07/2023, 17:04.? [facility], MR, BRAIN W&WO CONTRAST, 01/14/2016, 15:44. ? FINDINGS:? Image quality:? Excellent.? ? CSF spaces:? Basal cisterns are patent.? No extra-axial fluid collections.? The ventricles are relatively prominent. ? Brain:? No intracranial bleeds or masses.? There is cerebral volume loss for age, with resultant ventricular and sulcal prominence.? There are periventricular and deep white matter chronic small vessel ischemic changes.? There is intracranial internal carotid artery atherosclerosis.? ? Skull and face:? Calvarium and visualized facial bones appear intact, without suspicious lesions.? ? Sinuses:? Visualized sinuses and mastoids are clear.? ? ? IMPRESSION:? ? No acute intracranial hemorrhage is seen.? ? Relatively prominent lateral ventricles, given the degree of sulcal atrophy.? Please consider normal pressure hydrocephalus.? ? Dictated by: Mike Barr M.D. on 04/07/2023 at 16:55 ? ? ECG Data Interpretation: Sinus rhythm rate 5866 QRS 74 QTC 392 low voltage no EKG changes similar to previous EKG in 2017 MDM Narrative Medical decision making narrative: Patient 87-year-old female with headache for 5 days fever for a couple of days. She is febrile here with temperature of a 100.8? not tachycardic or hypotensive no leukocytosis. She is moving her neck pretty easily now. Head CT and chest x-ray are negative. Significant leukocytosis negative procalcitonin, negative lactic acid. She also has a negative air your urinalysis. Patient really states that she is been complaining of the worst headache that she is had some neck pain worse with movement hard to sit up and fever. She overall is feeling significantly better. Certainly concern for meningitis encephalitis. Strongly encouraged sure to for a lumbar puncture. However she adamantly declines. He certainly has capacity and understanding. Her also in the room I have explained the procedure he agrees to do with whatever she wants. They understand that there may be an infection in the brain. She is neurologically intact she really is able to turn her head easily and look at me without significant pain or problem. I encouraged her to return to the emergency department at any time. She has no other symptoms to explain etiology. Discharge Plan Departure Patient Disposition: Home Clinical Impression: Viral illness Instructions: DI for Viral Meningitis -- Adult Activity Restrictions/Additional Instructions: *You have been diagnosed with probable viral illness *What to do: We did not do a lumbar puncture today to fully investigate for a meningitis. Your blood work today was reassuring. I do not find any other source of infection. I encourage you to stay hydrated take Tylenol and Motrin as needed for pain and fever. Strongly encourage you to return to the emergency department if you should have any worsening symptoms or persistent headache for a possible lumbar puncture. *Continue to take medications as directed Tylenol 500 mg every 6 hours if needed for pain or fever Motrin 600 mg every 6 hours if needed for pain or fever *Follow up with your primary care provider in 2-3 days or call [phone] *Return to ER if you should have persistent headache, neck pain, fever nausea vomiting weakness numbness tingling or any new, worsening or concerning symptoms Prescriptions: No Action albuterol sulfate 90 mcg/actuation HFA aerosol inhaler 2 puff INHALATION Q6H PRN (Reason: shortness of breath or wheezing) Qty: 8.5 0RF ASPIRIN (#ASPIR 81) 81 mg PO Q DAY Qty: 0 potassium chloride 10 MEQ capsule, extended release 15 meq PO QDAY Qty: 90 3RF latanoprost 0.005 % drops 1 drp OPHTH HS Qty: 7 acetaminophen [Tylenol Extra Strength] 500 MG tablet 500 mg PO Q6HP PRNQty: 0 isosorbide mononitrate 30 MG tablet extended release 24 hr 30 mg PO QAM Qty: 90 3RF esomeprazole magnesium 20 MG capsule,delayed release(DR/EC) 20 mg PO EVERY OTHER DAY Qty: 45 3RF chlorthalidone 25 MG tablet 0 PO QDAY Qty: 45 3RF losartan 50 mg tablet 50 mg PO QDAY Qty: 90 3RF metoprolol succinate [Toprol XL] 25 mg tablet extended release 24 hr 25 mg PO QDAY Qty: 90 3RF atorvastatin [Lipitor] 40 mg tablet 40 mg PO QDAY Qty: 90 0RF Rx Instructions: on hold clarithromycin 500 mg tablet 1 tab PO BID Patient Comments: TAKE 1 TABLET BY MOUTH TWICE A DAY FOR 14 DAYS FOR H PYLORI INFECTION Rx Instructions: x 14 days start 8 metronidazole 500 mg tablet 500 mg PO BID Patient Comments: TAKE ONE TABLET BY MOUTH TWICE DAILY FOR 14 DAYS FOR H PYLORI. ANTIBIOTIC. Rx Instructions: 03/04 x 14 days amoxicillin 500 mg tablet 1,000 mg PO BID Rx Instructions: start 03/04 x 14 days escitalopram oxalate 20 mg tablet 20 mg PO DAILY ondansetron HCl [Zofran] 4 mg tablet 4 mg PO Q6-8H PRN (Reason: nausea and vomiting) Qty: 14 0RF Referrals: Sharonda Cervantes ARNP [Primary Care Provider] - Stand Alone Forms: Patient Portal/API
[2023-04-07] MEDS: KETOROLAC 30 MG/ML VIAL 15 MG IV (19:59)
[2023-04-07 21:09] LABS: RBC Urine None Seen (0-5/HPF)
[2023-04-07 21:10] LABS: Bacteria Urine Few (2-10); Culture Indicated Urine Cult Not Indicated; Squamous Epithelial Cell Urine 5-10 /HPF (0-5/HPF); WBC Urine 1-5/HPF (0-5/HPF)
== END 2023-04-07 21:21 | disposition home or self-care (01) ==
PROVIDERS: Emergency Medicine; Emergency Provider Emergency Medicine; PCP Internal Medicine
DX: B34.9 Viral infection, unspecified (principal); R51.9 Headache, unspecified; I10 Essential (primary) hypertension; R50.9 Fever, unspecified
CPT/HCPCS: 36415; 70450; 71045; 80053; 81003; 81015; 83605; 83690; 84145; 85025; 85610; 85730; 87040; 87633; 93005; 96361; 96374; 99284; J1885

== ENCOUNTER → 2023-07-13 13:11 | Outpatient (CLI) | payer MEDICARE, OTHER, SELFPAY ==
[2023-07-13 14:33] LABS: Hemoglobin 11.7 g/dL (12.0-16.0); Mean Corpuscular HGB Conc 34.5 % (30-36); Mean Corpuscular Hemoglobin 32.3 PG (26-34); Mean Corpuscular Volume 93.7 fL (80-100); Platelet Count 195 X10^3/uL (150-400); Red Blood Cell Count 3.63 X10^6/uL (4.0-5.2); Red Cell Distribution Width 13.3 % (11.6-14.8); White Blood Cell Count 4.9 X10^3/uL (4.5-11.0)
[2023-07-13 14:55] LABS: BUN Creatinine Ratio 13.5 (6-22); Blood Urea Nitrogen 18 mg/dL (7-17); Calcium 9.5 mg/dL (8.4-10.2); Carbon Dioxide 28 mmol/L (22-32); Chloride 103 mmol/L (98-107); Estimated Glomerular Filt Rate 39 mL/min (>60); Glucose 102 mg/dL (80-110); HEMOLYSIS < 15 (0-50); Potassium 4.4 mmol/L (3.4-5.1); Sodium 139 mmol/L (137-145)
[2023-07-13 15:21] LABS: Thyroid Stimulating Hormone 1.26 uIU/mL (0.47-4.68)
== END ==
PROVIDERS: PCP Internal Medicine; Referring Provider Internal Medicine Cardiovascular Disease; Visit Provider Internal Medicine Cardiovascular Disease
DX: R53.83 Other fatigue (principal)
CPT/HCPCS: 36415; 80048; 84443; 85027

== ENCOUNTER → 2023-08-30 09:01 | Outpatient (CLI) | payer MEDICARE, OTHER, SELFPAY ==
--- NOTE | 2023-08-30 | DI.RAD.S_ITS ---
PROCEDURE: FL BARIUM SWALLOW W SPEECH INDICATIONS: Chronic cough COMPARISON: TECHNIQUE: Examination was conducted in conjunction with speech pathology per standard protocol. In the lateral projection, filming was performed of the patient swallowing. AP projection filming may also be performed with patient swallowing. COMPARISON: [facility], , BARIUM SWALLOW, 01/11/2016, 11:34. FINDINGS: The oral preparatory phase appears normal, with proper containment. The subsequent oral propulsive phase, pharyngeal phase, and esophageal phase of swallowing also appear unremarkable with all proffered substances. No laryngotracheal penetration or aspiration. IMPRESSION: 1. No tracheal aspiration identified during the exam. 2. Please see the speech pathologist report for additional details. Dictated by: Jama Roman M.D. on 08/30/2023 at 10:07 Approved by: Jama Roman M.D. on 08/30/2023 at 10:07
--- NOTE | 2023-08-30 13:16 | ST.SWALLOW ---
Visit Care Team Role Provider Type CRISTINA Kulkarni Primary Care Provider [employer] Specialty: Family Practice Address: [address] [place] [address], [place], [address] Email: [email or web address] Max Fenton MD Attending Provider Physician Referring Provider Specialty: Ear, Nose, Throat Address: [address] [place] [address], [id number] Email: 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 Fenton, ENT Reason for Referral dysphagia Setting Setting Outpatient Care Patient Information Identification Type Name,Date of Patient History Pt was seen for a Modified Barium Sallow Study at the referral of Dr. Fneton. According to Dr. Fenton' notes (08/15/23) and patient report, she has been experiencing difficulty with swallowing, reporting a sensation of globus near her thyroid notch. Pt reported that she will eat for a while and then she will be unable to swallow mid- meal. At times she needs to expel liquids/solids, resulting in a choking sensation. At night, when she goes to bed, she reported that she begins coughing when she lays down. She noted she sleeps using stacked pillows. According to records, pt has a PMH of esophageal dysmotility with retro flow (barium swallow 2016 @ [facility]), GERD and possible hiatal hernia (per pt ). Subjective Observations Pt t was positioned in the fluoroscopy chair. Instructions and procedures were described for her. Pt indicated she understood and agreed to proceed. Patient Positioning Position View Lat-A/P Imaging Lateral View Textures Administered Trials Presented Thin Liquid via Spoon (IDDSI 0 ),Thin Liquid via Cup (IDDSI 0 ),Extremely Thick Liquid via Spoon (IDDSI 4),Regular (IDDSI 7) Barium Tablet Yes The IDDSI Framework Protocol: IDDSI.1 Oral Impairment Source: The Modified Barium Swallow Impairment Profile (MBSImP??) Lip Closure Interlabial escape; no progression to anterior lip Tongue Control During Bolus Hold Cohesive bolus between tongue to palatal seal Bolus Preparation/Mastication Slow prolonged chewing/mashing with complete re-collection Bolus Transport/Lingual Motion Delayed initiation of tongue motion Oral Residue Complete oral clearance,Trace residue lining oral structures Location Tongue Initiation of Pharyngeal Swallow Bolus head at posterior laryngeal surface of epiglottis Additional Oral Impairment Observations OME was completed with structures and function WFL. Natural dentition was observed to be in good hygiene. Noted mild reduction of lingual ROM. DKS was observed to be slower than expected. when asked to repeat 2-3 syllable words quickly, pt reported she was unable. /p/, /t/, /k/ repetitions were observed to be WNL. ORAL PHASE: Mastication was observed to be WFL. Good bolus formation and control. AP transition was delayed. Liquid bolus AP transition was also noted to be delayed. A second cue to swallow was needed before the pt initiated the swallow. The pt reported that this delay in initiation happens all the time...it just sits there Pharyngeal Impairment Source: The Modified Barium Swallow Impairment Profile (MBSImP??) Soft Palate Elevation No bolus between soft palate & pharyngeal wall Laryngeal Elevation Part.sup.move.thyroid cart/ part.approx.arytenoids to epiglot.petiole Anterior Hyoid Excursion Partial anterior movement Epiglottic Movement Complete inversion Laryngeal Vestibular Closure Incomplete; narrow column air/ contrast in laryngeal vestibule Pharyngeal Stripping Wave Present - diminished Pharyngoesophageal Segment Opening Partial distention/partial duration; partial obstruction of flow Tongue Base Retraction Narrow column of contrast/air betwn tongue base & post. pharyngeal wall Pharyngeal Residue Trace residue within/on pharyngeal structures Location Diffuse (>3 areas) Additional Pharyngeal Impairment Delayed swallow initiation ( Observations bolus at posterior laryngeal surface of the epiglottis) resulted in pooled contrast within the pharynx post- swallows. Mild tongue base weakness negatively impacted hyolaryngeal elevation. Epiglottic inversion was complete with a good seal of the laryngeal vestibule. No penetration or aspiration was observed. The extension and duration of the UES opening appeared to be less than expected but WFL. A/P View Textures Administered Trials Presented Thin Liquid via Spoon (IDDSI 0 ) The IDDSI Framework Protocol: IDDSI.1 A/P View Observations Pharyngeal Contraction Complete Esophageal Clearance Upright Position Complete clearance; esophageal coating Esophageal Function WFL Additional A-P Observations Initially, when the pt position was changed from lateral to AP, the pt c/o something being stuck. There was contrast remaining in her esophagus which was cleared with water. The barium tablet paused at the LES at which time the pt reported that the pill was stuck. The esophagus was observed to clear WFL. Clinical Impressions Dysphagia Type WNL Findings Overall, the pt presented with swallow WFL. Mild UES narrowing was noted. The pt c/ o of globus sensation when there was contrast within the esophagus and when the tablet paused at the LES before entering the stomach. Patient Appropriate for Therapy No Recommendations Diet Comments No change in diet recommended. Aspiration Precautions Recommended Precautions Upright at 90 Degrees, Alternate Liquids/Solids,Small Bites/Sips Additional Precautions GERD precautions discussed with the pt. Alternate liquids and solids Treatment Plan Additional Recommended Referrals GI referral as indicated Therapy Strategy Recommendations Small Bites and Sips,Alternate Liquids/Solids
== END ==
PROVIDERS: PCP Internal Medicine; Referring Provider Otolaryngology; Visit Provider Otolaryngology
DX: R13.10 Dysphagia, unspecified (principal); R09.89 Other specified symptoms and signs involving the circulatory and respiratory systems; R05.3 Chronic cough
CPT/HCPCS: 74230; 92611

== ENCOUNTER → 2024-01-11 09:44 | Outpatient (CLI) | payer MEDICARE, OTHER, SELFPAY ==
[2024-01-12 21:42] LABS: Deamidated Gliadin Ab IgA 13 units (0-19); Deamidated Gliadin Ab IgG 7 units (0-19); Immunoglobulin A,Qn 150 mg/dL (64-422); t-Transglutaminase IgA <2 U/mL (0-3)
== END ==
PROVIDERS: PCP Internal Medicine; Referring Provider Physician Assistant; Visit Provider Physician Assistant
DX: R19.7 Diarrhea, unspecified (principal)
CPT/HCPCS: 36415; 82784; 83516

== ENCOUNTER → 2024-01-12 12:51 | Outpatient (CLI) | payer MEDICARE, OTHER, SELFPAY ==
[2024-01-12 13:39] LABS: Occult Blood 1 NEGATIVE (Negative)
== END ==
PROVIDERS: PCP Internal Medicine; Referring Provider Internal Medicine; Visit Provider Internal Medicine
DX: R19.7 Diarrhea, unspecified (principal)
CPT/HCPCS: 82270

== ENCOUNTER → 2024-04-24 11:49 | Outpatient (CLI) | payer MEDICARE, OTHER, SELFPAY ==
--- NOTE | 2024-04-24 11:50 | DI.US.S_ITS ---
PROCEDURE: US RENAL COMPLETE INDICATIONS: Chronic kidney disease, stage 3b TECHNIQUE: Real-time scanning was performed of the kidneys and bladder, with image documentation. COMPARISON: None. FINDINGS: Kidneys: Kidneys are normal in size. Right kidney measures 8.8 cm long; left kidney measures 9 point cm long. Right renal cortical thickness is 1.2 cm; left renal cortical thickness is 1.1 cm. Renal cortical echotexture is normal. No hydronephrosis or nephrolithiasis. No suspicious solid mass lesions. Bladder: The bladder was not distended. Miscellaneous: No free pelvic fluid. IMPRESSION: No hydronephrosis. Dictated by: Annalisa Mclaughlin M.D. on 04/24/2024 at 16:33 Approved by: Annalisa Mclaughlin M.D. on 04/24/2024 at 16:34
== END ==
PROVIDERS: PCP Internal Medicine; Referring Provider Internal Medicine; Visit Provider Internal Medicine
DX: N39.45 Continuous leakage (principal); N18.32 Chronic kidney disease, stage 3b; R10.9 Unspecified abdominal pain
CPT/HCPCS: 76770

== ENCOUNTER → 2024-05-06 11:53 | Outpatient (CLI) | payer MEDICARE, OTHER, SELFPAY ==
--- NOTE | 2024-05-06 11:57 | DI.RAD.S_ITS ---
PROCEDURE: XR LUMBAR SPINE 2-3V INDICATIONS: Low back pain, unspecified TECHNIQUE: 3 views of the lumbar spine were acquired. COMPARISON: [facility], CR, XR LUMBAR SPINE 2-3V, 02/23/2022, 10:44. FINDINGS: Bones: Mild anterolisthesis of L4 on L5 again seen, similar to prior. Overall moderate degenerative changes. Vertebral body heights are well maintained. No traumatic subluxation. Slight leftward spinal curvature on frontal view. Soft tissues: Partially seen hip arthrosis. No suspicious calcifications. IMPRESSION: Moderate degenerative changes and L4 on L5 anterolisthesis again seen. Trace leftward spinal curvature. If there is high concern for further derangement, consider MRI evaluation. Dictated by: Angel Landrum M.D. on 05/06/2024 at 14:12 Approved by: Angel Landrum M.D. on 05/06/2024 at 14:13
== END ==
LOC: RAD 11:55
PROVIDERS: PCP Internal Medicine; Referring Provider Internal Medicine; Visit Provider Internal Medicine
DX: M47.816 Spondylosis without myelopathy or radiculopathy, lumbar region (principal); M43.16 Spondylolisthesis, lumbar region; M54.50 Low back pain, unspecified; G89.29 Other chronic pain
CPT/HCPCS: 72100

== ENCOUNTER → 2024-05-15 07:40 | Outpatient (CLI) | payer MEDICARE, OTHER, SELFPAY ==
[2024-05-15 08:41] LABS: BUN Creatinine Ratio 23.1 (6-22); Blood Urea Nitrogen 24 mg/dL (7-17); Calcium 9.8 mg/dL (8.4-10.2); Carbon Dioxide 30 mmol/L (22-32); Chloride 104 mmol/L (98-107); Estimated Glomerular Filt Rate 52 mL/min (>60); Glucose 119 mg/dL (80-110); HEMOLYSIS < 15 (0-50); Potassium 4.1 mmol/L (3.4-5.1); Sodium 139 mmol/L (137-145)
== END ==
PROVIDERS: PCP Internal Medicine; Referring Provider Internal Medicine Cardiovascular Disease; Visit Provider Internal Medicine Cardiovascular Disease
DX: I10 Essential (primary) hypertension (principal)
CPT/HCPCS: 36415; 80048

== ENCOUNTER → 2024-05-27 09:09 | Outpatient (CLI) | payer MEDICARE, OTHER, SELFPAY ==
--- NOTE | 2024-05-27 09:11 | DI.MRI.S_ITS ---
PROCEDURE: MR LUMBAR SPINE WO CON INDICATIONS: 88-year-old female with low back pain and left-sided radiculopathy TECHNIQUE: Noncontrast sagittal T1 spin echo and T2 fast echo, sagittal STIR, axial T1 and T2 fast spin echo through the lumbar spine. Axial and oblique coronal T1 spin echo and STIR through the sacrum. In cases with scoliosis, additional coronal T2 fast spin echo may be performed. COMPARISON: [facility], , L-SPINE WITHOUT CONTRAST, 04/02/2013, 14:05. FINDINGS: Alignment and Curvature: Degenerative grade 1 anterior spondylolisthesis L4-56 Bone Marrow: Modic type 1 edematous endplate changes noted at L4-5 Spinal Cord: Conus medullaris terminates at the L1 level. Visualized cord demonstrates normal signal and size. Paraspinous Soft Tissues: No paravertebral masses. T12-L1: Normal appearance. L1-L2: Normal appearance. L2-L3: Disc height is maintained. Disc bulge and hypertrophic facet joints present. It mild central stenosis. Mild bilateral foraminal stenosis L3-L4: Disc space narrowing and disc bulge, ligamentum flavum laxity and hypertrophic facet joints results in moderate central stenosis. Mild bilateral foraminal stenosis. L4-L5: Disc space narrowing, disc bulge, hypertrophic facet joints and ligamentum flavum laxity all combined result in moderate central stenosis. Moderate right and moderate to severe left foraminal stenosis L5-S1: Disc height is maintained. No central stenosis. No foraminal stenosis. Sacrum: No evidence of sacral fracture. Sacral foramina unremarkable IMPRESSION: Multilevel degenerative disc disease and arthropathy results in varying degrees of central and foraminal stenosis including moderate to severe left foraminal stenosis L4-5 Approved by: Jah Anderson M.D. on 05/27/2024 at 17:11
== END ==
PROVIDERS: PCP Internal Medicine; Referring Provider Internal Medicine; Visit Provider Internal Medicine
DX: M47.26 Other spondylosis with radiculopathy, lumbar region (principal); M51.16 Intervertebral disc disorders with radiculopathy, lumbar region; M48.061 Spinal stenosis, lumbar region without neurogenic claudication; M54.50 Low back pain, unspecified
CPT/HCPCS: 72148

== ENCOUNTER → 2024-11-05 10:21 | Outpatient (CLI) | payer MEDICARE, OTHER, SELFPAY ==
--- NOTE | 2024-11-05 10:24 | DI.RAD.S_ITS ---
PROCEDURE: XR CHEST 2V INDICATIONS: PAIN IN R SCAPULA TECHNIQUE: 2 views of the chest were acquired. COMPARISON: [facility], CR, XR CHEST 1V, 04/07/2023, 17:04. FINDINGS: Surgical changes and devices: None. Lungs and pleura: Lungs are clear. No pleural effusions or pneumothorax. Mediastinum: Mediastinal contours are normal. Heart size is normal. Bones and chest wall: No suspicious bony abnormalities. Soft tissues appear unremarkable. IMPRESSION: No acute cardiopulmonary abnormality is seen. Dictated by: Shanel Rosas M.D. on 11/05/2024 at 17:48 Approved by: Shanel Rosas M.D. on 11/05/2024 at 17:48
--- NOTE | 2024-11-05 10:24 | DI.RAD.S_ITS ---
PROCEDURE: XR THORACIC SPINE 2V INDICATIONS: PAIN IN R SCAPULA TECHNIQUE: 3 views of the thoracic spine were acquired. COMPARISON: None. FINDINGS: Bones: No fractures or dislocations. Mild disc height loss and moderate anterior endplate spurring in the midthoracic spine. No suspicious bony lesions. 12 pairs of ribs are noted, and appear intact where visualized. Soft tissues: No paravertebral stripe thickening. Moderate abdominal aortic atherosclerotic calcification. IMPRESSION: No acute fractures. Chronic appearing degenerative midthoracic endplate spurring. Dictated by: Shanel Rosas M.D. on 11/05/2024 at 17:48 Approved by: Shanel Rosas M.D. on 11/05/2024 at 17:50
== END ==
PROVIDERS: PCP Internal Medicine; Referring Provider Internal Medicine; Visit Provider Internal Medicine
DX: M89.8X1 Other specified disorders of bone, shoulder (principal); I70.0 Atherosclerosis of aorta
CPT/HCPCS: 71046; 72070

== ENCOUNTER → 2024-11-22 10:01 | Outpatient (CLI) | payer MEDICARE, OTHER, SELFPAY ==
--- NOTE | 2024-11-22 10:04 | DI.CT.S_ITS ---
PROCEDURE: CT ABDOMEN PELVIS W CON INDICATIONS: Abdominal pain TECHNIQUE: After the administration of intravenous contrast, axial sections acquired from the lung bases to the pubic symphysis. Coronal and sagittal reformats were performed. For radiation dose reduction, the following was used: automated exposure control, adjustment of mA and/or kV according to patient size. COMPARISON: [facility], CT, ABDOMEN/PELVIS WITH CONTRAST, 03/28/2017, 9:32. FINDINGS: Image quality: Diagnostic. Lower Chest: No significant findings. ABDOMEN: Liver: No solid mass. Gallbladder: No radiopaque gallstones or wall thickening. Biliary ducts: No biliary dilation. Pancreas: No ductal dilation. Spleen: Size is within normal limits. Adrenal Glands: No adrenal nodules. Kidneys and Ureters: No hydronephrosis. No solid mass. No complex renal cystic lesion which requires follow up. Stomach and Bowel: Normal ascending colonic caliber, without significant wall thickening. The transverse colon is relatively small in caliber over much of its length, and appears to show a small degree of mucosal enhancement. The appearance is potentially a manifestation of segmental colitis. Peritoneum: No abnormal intraperitoneal fluid. No free air. Ventral Wall: No significant ventral hernia. Abdominal Nodes: No retroperitoneal or mesenteric adenopathy by size criteria. Vessels: Aorta and inferior vena cava are normal in size. PELVIS: Pelvic Organs: Unremarkable. Bladder: No bladder wall thickening, accounting for underdistention. Pelvic Nodes: No enlarged lymph nodes. Miscellaneous: No inguinal hernias are seen. At the right lower quadrant a normal or abnormal appendix could not be located. No secondary CT evidence of acute appendicitis is found. Sigmoid diverticulosis is present but without acute diverticulitis. Bones: No aggressive osseous abnormality. IMPRESSION: Possible segmental colitis involving the transverse colon. No colonic mass lesion is identified. Right lower quadrant shows no secondary CT evidence of acute appendicitis. A normal or abnormal appendix could not be located. No adnexal pathology seen, no urinary tract stone or inflammation is found. Sigmoid diverticulosis, but without CT evidence of acute diverticulitis. Dictated by: Kj Hollingsworth M.D. on 11/22/2024 at 15:32 Approved by: Kj Hollingsworth M.D. on 11/22/2024 at 15:40
[2024-11-22 10:54] LABS: Estimated Glomerular Filt Rate 57 mL/min (>60)
== END ==
PROVIDERS: Radiology Diagnostic Radiology; PCP Internal Medicine; Referring Provider Family Medicine; Visit Provider Family Medicine
DX: K57.92 Diverticulitis of intestine, part unspecified, without perforation or abscess without bleeding (principal); R10.31 Right lower quadrant pain; R10.32 Left lower quadrant pain
CPT/HCPCS: 36415; 74177; 82565; Q9967

== ENCOUNTER 2024-11-25 07:21 | Emergency (ER) | payer MEDICARE, OTHER, SELFPAY ==
[2024-11-25] VITALS (14 sets, daily range): BP systolic 181–224; BP diastolic 77–101; PULSE 56–69; RESP 16–19; TEMP 36.9–37.1; O2SAT 96–98; BMI 26.5
--- NOTE | 2024-11-25 07:48 | EKG_ITS ---
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
[2024-11-25 08:04] LABS: Add Manual Diff / Slide Review NO; Basophils Absolute Auto 100 /uL (0-100); Basophils Percent Auto 0.8 % (0-2); Eosinophils Absolute Auto 300 /uL (0-450); Eosinophils Percent Auto 5.1 % (2-4); Hematocrit 34.5 % (36-46); Hemoglobin 11.6 g/dL (12.0-16.0); Lymphocytes Absolute Auto 1600 /uL (1100-4500); Lymphocytes Percent Auto 25.7 % (25-40); Mean Corpuscular HGB Conc 33.5 % (30-36); Mean Corpuscular Hemoglobin 32.2 PG (26-34); Mean Corpuscular Volume 95.9 fL (80-100); Monocytes Absolute Auto 400 /uL (0-900); Monocytes Percent Auto 6.6 % (3-14); Neutrophils Absolute Auto 3800 /uL (1500-7000); Neutrophils Percent Auto 61.8 % (50-75); Platelet Count 182 X10^3/uL (150-400); Red Cell Distribution Width 14.2 % (11.6-14.8); White Blood Cell Count 6.1 X10^3/uL (4.5-11.0)
[2024-11-25 08:12] LABS: Prothrombin Time 10.8 SECONDS (9.4-12.5)
[2024-11-25 08:15] LABS: PTT Partial Thromboplastin Tim 36 SECONDS (25.1-36.5)
[2024-11-25 08:16] LABS: Alanine Aminotransferase 22 IU/L (<35); Albumin 4.2 g/dL (3.5-5.0); Albumin Globulin Ratio 1.6 (1.0-2.8); Alkaline Phosphatase 78 U/L (38-126); Aspartate Aminotransferase 28 IU/L (14-36); BUN Creatinine Ratio 17.2 (6-22); Bilirubin Total 0.3 mg/dL (0.2-1.3); Blood Urea Nitrogen 17 mg/dL (7-17); Calcium 9.6 mg/dL (8.4-10.2); Carbon Dioxide 26 mmol/L (22-32); Chloride 108 mmol/L (98-107); Estimated Glomerular Filt Rate 55 mL/min (>60); Globulin 2.6 g/dL (1.7-4.1); Glucose 108 mg/dL (80-110); HEMOLYSIS < 15 (0-50); Sodium 141 mmol/L (137-145); Total Protein 6.8 g/dL (6.3-8.2)
--- NOTE | 2024-11-25 08:48 | ED.GIBLEED ---
HPI - GI Bleed General Chief complaint: GI Bleed Stated complaint: bloody stool Time Seen by Provider: 11/25/24 08:42 History of Present Illness HPI Narrative: Patient 89-year-old female history of hyperlipidemia hypertension coronary artery disease presenting today with rectal bleeding. She has been having some lower abdominal pain for a couple days she had an outpatient CT done 4 days ago which did show segmental colitis involving the transverse colon. She was started on Augmentin. She says it did give her some diarrhea she has not taken her pills this morning. However the she had bright red blood per rectum. No nausea or vomiting she was having some pain. Real chest pain or palpitations Related Data Home Medications Medication Instructions Recorded Confirmed ASPIRIN (#ASPIR 81) 81 mg PO Q DAY ##0 04/02/12 09/25/24 acetaminophen 500 mg tablet 500 mg PO Q6HP PRN ##0 01/10/17 09/25/24 (Tylenol Extra Strength) latanoprost 0.005 % eye drops 1 drp [facility] HS ##7 01/10/17 09/25/24 clarithromycin 500 mg tablet 1 tab PO BID 03/09/19 09/25/24 escitalopram oxalate 20 mg tablet 20 mg PO DAILY 03/09/19 09/25/24 esomeprazole magnesium 40 mg 40 mg PO BID 09/25/24 09/25/24 capsule,delayed release furosemide 40 mg tablet 40 mg PO DAILY 09/25/24 09/25/24 gabapentin 100 mg capsule 100 mg PO BEDTIME 09/25/24 09/25/24 isosorbide mononitrate 60 mg 60 mg PO DAILY 09/25/24 09/25/24 tablet,extended release 24 hr metformin 500 mg tablet,extended 500 mg PO DAILY 09/25/24 09/25/24 release 24 hr Previous Rx's Medication Instructions Recorded potassium chloride 10 mEq 15 meq (1.5 x 10 mEq) PO QDAY #90 01/10/17 capsule,extended release caps chlorthalidone 25 mg tablet 0 PO QDAY #45 tabs 03/06/18 losartan 50 mg tablet 50 mg PO QDAY #90 tabs 10/11/18 metoprolol succinate 25 mg 25 mg PO QDAY ##90 10/16/18 tablet,extended release 24 hr (Toprol XL) atorvastatin 40 mg tablet (Lipitor) 40 mg PO QDAY #90 tabs 12/04/18 albuterol sulfate 90 mcg/actuation 2 puff inhalation Q6H PRN 02/07/19 aerosol inhaler shortness of breath or wheezing #8.5 grams ciprofloxacin HCl 500 mg tablet 500 mg PO BID #14 tabs 11/25/24 (Cipro) metronidazole 500 mg tablet 500 mg PO Q8H 7 days #21 tabs 11/25/24 Allergies Allergy/AdvReac Type Severity Reaction Status Date / Time amoxicillin Allergy Intermediate Gastrointestinal Verified 09/25/24 11:55 Upset ciprofloxacin Allergy Mild HIVES Verified 09/25/24 11:44 codeine Allergy Mild WELTS Verified 09/25/24 11:44 Patient History Medical History Facet arthropathy, lumbar Lumbar radiculopathy Lumbar stenosis with neurogenic claudication Vision disorder Hearing deficit GERD (gastroesophageal reflux disease) Hypothyroidism Chronic cough (~2013) Seasonal allergies (~2001) Depression (~1968) Anxiety (~1968) Restless leg syndrome Headache Shoulder pain (~2009) Chronic back pain (~2004) Acne (~1950) Rubella (~1939) Mumps (~1939) Measles (~1939) Chicken pox (~1939) Tinnitus (~1999) Cataracts, bilateral Endometriosis (~1954) History of urinary incontinence (~2013) Myocardial infarction (~1995) Hypertension (~1995) Hyperlipidemia Coronary artery disease (~1995) Surgical History Anesthesia History of shoulder surgery (~11/2014) Status post breast biopsy (~1958) History of cataract removal with insertion of prosthetic lens (~2010) History of angioplasty (~1995) Status post hysterectomy with oophorectomy (~1977) Status post breast biopsy (~1952) Status post appendectomy (~1956) History of tonsillectomy (~1946) Family History Brother Heart disease Father Heart disease Mother Cancer Grandmother Cancer Sister Heart disease Brother No problems noted. Sister No problems noted. Social History Smoking Status: Never smoker Smoking Status: Never smoker alcohol intake frequency: 0-2 drinks per day Exam Initial Vital Signs Initial Vital Signs: Vital Signs Pulse Oximetry 97 11/25/24 07:42 GENERAL: Alert well-appearing 89-year-old female and in no acute distress. HEENT: Head atraumatic,EOMI, pupils reactive, face symmetric, moist mucous membranes CARDIOVASCULAR: Regular rate and rhythm without murmurs, rubs or gallops. RESPIRATORY: Breath sounds equal bilaterally, no wheezes rales or rhonchi. ABDOMEN: Soft, mildly tender right lower quadrant no guarding or rebound EXTREMITIES: Normal range of motion, no clubbing or edema. Neurovascularly intact NEUROLOGICAL: Alert and oriented x4.Normal gait and speech. Cranial nerves II through XII grossly intact. SKIN: Warm, dry, no laceration, no petechiae, no rashes or lesions. Course Orders Ordered: ED Orders 11/25/24 09:06 CT angio Abd/Pel GI Bleed Stat 11/25/24 10:25 Urine Microscopic Stat Discontinued Medications Acetaminophen (Ofirmev) 1,000 mg in 100 mls @ 400 mls/hr IV NOW ONE Stop: 11/25/24 09:19 Last Admin: 11/25/24 09:39 Dose: Not Given Documented By: Losartan Potassium (Losartan 50 Mg Tablet) 50 mg PO NOW ONE Stop: 11/25/24 10:59 Last Admin: 11/25/24 11:11 Dose: 50 mg Documented By: Ondansetron HCl (Ondansetron 4 Mg/2 Ml Inj) 4 mg IV NOW PRN PRN Reason: Nausea And Vomiting Ondansetron HCl (Ondansetron 4 Mg Odt) 4 mg SL NOW PRN PRN Reason: Nausea And Vomiting Pantoprazole Sodium (Pantoprazole 40 Mg Vial) 80 mg IV NOW ONE Stop: 11/25/24 07:51 Last Admin: 11/25/24 09:01 Dose: 80 mg Documented By: VIJAY Vital Signs Vital signs: Vital Signs - 8 hr 11/25/24 10:00 11/25/24 10:01 11/25/24 10:01 Temperature Pulse Rate 58 L 59 L Respiratory Rate Blood Pressure 224/86 H Pulse Oximetry 97 97 Oxygen Delivery Method 11/25/24 10:30 11/25/24 10:32 11/25/24 10:32 Temperature Pulse Rate 58 L 59 L Respiratory Rate Blood Pressure 217/86 H Pulse Oximetry 98 98 Oxygen Delivery Method 11/25/24 11:11 11/25/24 11:30 Temperature 98.4 F Pulse Rate 59 L 65 Respiratory Rate 19 Blood Pressure 221/85 H 181/77 H Pulse Oximetry 98 Oxygen Delivery Method Room Air MDM - GI Bleed Lab Data 11/25/24 07:52 11/25/24 07:52 Labs: Lab Results 11/25/24 11/25/24 Range/Units 07:52 10:25 WBC 6.1 (4.5-11.0) X10^3/uL RBC 3.60 L (4.0-5.2) X10^6/uL Hgb 11.6 L (12.0-16.0) g/dL Hct 34.5 L (36-46) % MCV 95.9 (80-100) fL MCH 32.2 (26-34) PG MCHC 33.5 (30-36) % RDW 14.2 (11.6-14.8) % Plt Count 182 (150-400) X10^3/uL Neut % (Auto) 61.8 (50-75) % Lymph % (Auto) 25.7 (25-40) % [place] % (Auto) 6.6 (3-14) % Eos % (Auto) 5.1 H (2-4) % Baso % (Auto) 0.8 (0-2) % Neut # (Auto) 3800 (9045-4344) /uL Lymph # (Auto) 1600 (9967-9979) /uL [place] # (Auto) 400 (0-900) /uL Eos # (Auto) 300 (0-450) /uL Baso # (Auto) 100 (0-100) /uL PT 10.8 (9.4-12.5) SECONDS INR 1.0 (0.9-1.3) APTT 36 (25.1-36.5) SECONDS Sodium 141 (137-145) mmol/L Potassium 4.0 (3.4-5.1) mmol/L Chloride 108 H (98-107) mmol/L Carbon Dioxide 26 (22-32) mmol/L BUN 17 (7-17) mg/dL Creatinine 0.99 (0.52-1.04) mg/dL Estimated GFR 55 L (>60) mL/min BUN/Creatinine Ratio 17.2 (6-22) Glucose 108 (80-110) mg/dL Calcium 9.6 (8.4-10.2) mg/dL Total Bilirubin 0.3 (0.2-1.3) mg/dL AST 28 (14-36) IU/L ALT 22 (<35) IU/L Alkaline Phosphatase 78 (38-126) U/L Total Protein 6.8 (6.3-8.2) g/dL Albumin 4.2 (3.5-5.0) g/dL Globulin 2.6 (1.7-4.1) g/dL Albumin/Globulin Ratio 1.6 (1.0-2.8) Urine RBC 1-5/hpf (0-5/HPF) Urine WBC 0-1/hpf (0-5/HPF) Ur Squamous Epith Cells 1-5 /hpf (0-5/HPF) Urine Bacteria None seen (None) Ur Culture Indicated? Cult not indicated Vol Urine Centrifuged 10ml (spun) Blood Type A Positive Antibody Screen Negative Point of Care Testing Stool Occult Blood Positive Urine Dip Bedside Urine Glucose Negative Bedside Urine Bilirubin - Negative Bedside Urine Ketone - Negative Urine Specific [place] 1.005 Bedside Urine Occult Blood +/- Bedside Urine pH 6.5 Bedside Urine Protein - Negative Bedside Urine Urobilinogen - Negative Bedside Urine Nitrite - Negative Bedside Urine Leukocytes - Negative Esterase Imaging Data CT scan - abdomen/pelvis: Radiologist's Impression: PROCEDURE: CT ANGIO ABD/PEL GI BLEED INDICATIONS: GI Bleed TECHNIQUE: After the administration of intravenous contrast, 2.5 mm thick sections acquired from the diaphragm to the symphysis. 10 mm maximum-intensity projection (MIP) reformats were then acquired. For radiation dose reduction, the following was used: automated exposure control. COMPARISON: [facility], CT, ABDOMEN/PELVIS WITH CONTRAST, 03/28/2017, 9:32. [facility], CT, CT ABDOMEN PELVIS W CON, 11/22/2024, 11:37. FINDINGS: Image Quality: Diagnostic. Abdominal aorta: No aortic aneurysm or evidence of acute aortic syndrome. Mesenteric arteries: Patent without hemodynamically significant stenosis. Renal arteries: Patent without hemodynamically significant stenosis. OTHER: Lower Chest: No significant findings. Liver: No solid mass. Gallbladder: No radiopaque gallstones or wall thickening. Biliary ducts: No biliary dilation. Pancreas: No ductal dilation. Spleen: Size is within normal limits. Adrenal Glands: No adrenal nodules. Kidneys and Ureters: No hydronephrosis. No kidney stones. No solid mass. No complex renal cystic lesion which requires follow up. Stomach and Bowel: The suspected thickening at the distal transverse colon is no longer appreciated. Diverticulosis. No diverticulitis demonstrated. There is liquid stool contents extending to the descending colon suggesting diarrhea. The appendix is absent. No small bowel obstruction. The stomach is unremarkable. No active extravasation is demonstrated. Peritoneum: No abnormal intraperitoneal fluid. No free air. Ventral Wall: No hernia. Abdominal Nodes: No retroperitoneal or mesenteric adenopathy by size criteria. Vessels: Minimal aortic ectasia. Circumferential calcified atherosclerotic plaque. PELVIS: Pelvic Organs: Uterus is absent. Bladder: No stone. Pelvic Nodes: No enlarged lymph nodes. Miscellaneous: Question fat containing right inguinal hernia. Bones: No aggressive osseous abnormality. DDD most pronounced at L4-L5. IMPRESSION: 1. No active extravasation. No free fluid. No pneumoperitoneum. 2. The previously seen suspected thickening at transverse colon is no longer appreciated. Suspect diarrhea. 3. No diverticulitis demonstrated. Dictated by: Marcos Daly M.D. on 11/25/2024 at 10:27 ECG Data Attestation: I personally reviewed and interpreted this ECG as follows: Prior ECG tracings: available for review Interpretation: Sinus rhythm rate 58 FL interval 180 QRS [address] changes no T-wave inversions MDM Narrative Medical decision making narrative: MDM CC: Abdominal pain with rectal bleeding Complicating co-morbidities: Coronary artery disease hypertension Medical records reviewed: CT reviewed from 4 days ago shows colitis and transverse colon Differential considered: GI bleed diverticular bleed colitis Exam documented above, pertinent findings include: Mild tenderness in right lower quadrant Lab Test results independently reviewed as above. Pertinent findings: WBC 6.1 hemoglobin 11 0.6/34.5 previously 11.7/34 platelets 182 CMP sodium 141 potassium 4.0 chloride 108, carbon dioxide 26 BUN 17 creatinine 0.99 Independently reviewed EKG as above Sinus rhythm Imaging studies independently reviewed: CT does not show any active bleeding or diverticulitis Consultations: None Treatments: Losartan offered Tylenol but refused Re-evaluations: No further episodes of bleeding Discussion: 89-year-old female diagnosed with colitis on CT 4 days ago presents today with rectal bleeding. She is hemodynamically stable no significant leukocytosis. CT does not show any active bleeding. I suspect that her bleeding is from the colitis. She is antiplatelet or anticoagulation medications. No further bleeding here in the ED. She did have some diarrhea with Augmentin we will change up her antibiotics to Cipro and Flagyl. Patient's reports allergy to Cipro however she reports it has only a rash. She like to try Cipro she says that she previously was allergic to penicillin but did fine with the Augmentin. I am also not convinced she needs the antibiotic with colitis she has no leukocytosis or fever. Discussed with patient if you should develop rash or allergy to stop the antibiotic take Benadryl, return to ED Discharge Plan Departure Patient Disposition: Home Clinical Impression: Gastroenteritis Instructions: DI for Colitis Activity Restrictions/Additional Instructions: *You have been diagnosed with colitis and rectal bleeding *What to do: expect to have some bleeding but it should decrease increase diet as tolerated. *Continue to take medications as directed Stop augmentin Start cipro 500 twice a day for 7 days--if you get a rash stop taking it and take benadryl 25mg Flaygl 500 3 times a day for 7 days *Follow up with your primary care provider in 2-3 days or call [phone] *Return to ER if you should have multiple episodes of bleeding, increase pain, [or] any new, worsening or concerning symptoms Prescriptions: New metronidazole 500 mg tablet 500 mg PO Q8H 7 Days Qty: 21 0RF ciprofloxacin HCl [Cipro] 500 mg tablet 500 mg PO BID Qty: 14 0RF No Action albuterol sulfate 90 mcg/actuation HFA aerosol inhaler 2 puff INHALATION Q6H PRN (Reason: shortness of breath or wheezing) Qty: 8.5 0RF ASPIRIN (#ASPIR 81) 81 mg PO Q DAY Qty: 0 potassium chloride 10 MEQ capsule, extended release 15 meq PO QDAY Qty: 90 3RF latanoprost 0.005 % drops 1 drp OPHTH HS Qty: 7 acetaminophen [Tylenol Extra Strength] 500 MG tablet 500 mg PO Q6HP PRNQty: 0 chlorthalidone 25 MG tablet 0 PO QDAY Qty: 45 3RF losartan 50 mg tablet 50 mg PO QDAY Qty: 90 3RF metoprolol succinate [Toprol XL] 25 mg tablet extended release 24 hr 25 mg PO QDAY Qty: 90 3RF atorvastatin [Lipitor] 40 mg tablet 40 mg PO QDAY Qty: 90 0RF Rx Instructions: on hold clarithromycin 500 mg tablet 1 tab PO BID Patient Comments: TAKE 1 TABLET BY MOUTH TWICE A DAY FOR 14 DAYS FOR H PYLORI INFECTION Rx Instructions: x 14 days start 03/04 escitalopram oxalate 20 mg tablet 20 mg PO DAILY esomeprazole magnesium 40 mg capsule,delayed release(DR/EC) 40 mg PO BID furosemide 40 mg tablet 40 mg PO DAILY metformin 500 mg tablet extended release 24 hr 500 mg PO DAILY isosorbide mononitrate 60 mg tablet extended release 24 hr 60 mg PO DAILY gabapentin 100 mg capsule 100 mg PO BEDTIME Referrals: Sharonda Cervantes ARNP [Primary Care Provider] - Stand Alone Forms: Patient Portal/API/Survey
--- NOTE | 2024-11-25 09:00 | PC.NURSE ---
Assumed cares of patient at this time. Pt denies symptoms of dizziness or feeling lightheaded. Laying back in gurney. Appears in NAD. at bedside. Warm blanket provided.
[2024-11-25] MEDS: PANTOPRAZOLE 40 MG VIAL 80 MG IV (09:01)
--- NOTE | 2024-11-25 09:06 | DI.CT.S_ITS ---
PROCEDURE: CT ANGIO ABD/PEL GI BLEED INDICATIONS: GI Bleed TECHNIQUE: After the administration of intravenous contrast, 2.5 mm thick sections acquired from the diaphragm to the symphysis. 10 mm maximum-intensity projection (MIP) reformats were then acquired. For radiation dose reduction, the following was used: automated exposure control. COMPARISON: [facility], CT, ABDOMEN/PELVIS WITH CONTRAST, 03/28/2017, 9:32. [facility], CT, CT ABDOMEN PELVIS W CON, 11/22/2024, 11:37. FINDINGS: Image Quality: Diagnostic. Abdominal aorta: No aortic aneurysm or evidence of acute aortic syndrome. Mesenteric arteries: Patent without hemodynamically significant stenosis. Renal arteries: Patent without hemodynamically significant stenosis. OTHER: Lower Chest: No significant findings. Liver: No solid mass. Gallbladder: No radiopaque gallstones or wall thickening. Biliary ducts: No biliary dilation. Pancreas: No ductal dilation. Spleen: Size is within normal limits. Adrenal Glands: No adrenal nodules. Kidneys and Ureters: No hydronephrosis. No kidney stones. No solid mass. No complex renal cystic lesion which requires follow up. Stomach and Bowel: The suspected thickening at the distal transverse colon is no longer appreciated. Diverticulosis. No diverticulitis demonstrated. There is liquid stool contents extending to the descending colon suggesting diarrhea. The appendix is absent. No small bowel obstruction. The stomach is unremarkable. No active extravasation is demonstrated. Peritoneum: No abnormal intraperitoneal fluid. No free air. Ventral Wall: No hernia. Abdominal Nodes: No retroperitoneal or mesenteric adenopathy by size criteria. Vessels: Minimal aortic ectasia. Circumferential calcified atherosclerotic plaque. PELVIS: Pelvic Organs: Uterus is absent. Bladder: No stone. Pelvic Nodes: No enlarged lymph nodes. Miscellaneous: Question fat containing right inguinal hernia. Bones: No aggressive osseous abnormality. DDD most pronounced at L4-L5. IMPRESSION: 1. No active extravasation. No free fluid. No pneumoperitoneum. 2. The previously seen suspected thickening at transverse colon is no longer appreciated. Suspect diarrhea. 3. No diverticulitis demonstrated. Dictated by: Marcos Daly M.D. on 11/25/2024 at 10:27 Approved by: Marcos Daly M.D. on 11/25/2024 at 10:40
[2024-11-25 10:51] LABS: Urine Volume 10mL (spun)
[2024-11-25 10:55] LABS: Bacteria Urine None Seen; Culture Indicated Urine Cult Not Indicated; RBC Urine 1-5/HPF (0-5/HPF); Squamous Epithelial Cell Urine 1-5 /HPF (0-5/HPF); WBC Urine 0-1/HPF (0-5/HPF)
--- NOTE | 2024-11-25 10:59 | PC.NURSE ---
BP 221/85 Dr Luna notified.
[2024-11-25] MEDS: LOSARTAN 50 MG TABLET PO (11:11)
== END 2024-11-25 11:35 | disposition home or self-care (01) ==
PROVIDERS: Emergency Provider Emergency Medicine; PCP Internal Medicine
DX: K52.9 Noninfective gastroenteritis and colitis, unspecified (principal); K62.5 Hemorrhage of anus and rectum; I25.10 Atherosclerotic heart disease of native coronary artery without angina pectoris; I10 Essential (primary) hypertension
CPT/HCPCS: 36415; 74174; 80053; 81003; 81015; 82272; 85025; 85610; 85730; 86850; 86900; 86901; 93005; 96374; 99284; J2470; Q9967

== ENCOUNTER → 2024-12-06 10:17 | Outpatient (CLI) | payer MEDICARE, OTHER, SELFPAY ==
[2024-12-06 19:31] LABS: Adenovirus F 40/41 Not Detected (Not Detect); Astrovirus Not Detected (Not Detect); Campylobacter Not Detected (Not Detect); Clostridium difficile toxin AB Not Detected (Not Detect); Cryptosporidium Not Detected (Not Detect); Cyclospora cayetanensis Not Detected (Not Detect); Entamoeba histolytica Not Detected (Not Detect); Enteroaggregative E.coli Not Detected (Not Detect); Enteropathogenic E.coli Not Detected (Not Detect); Enterotoxigenic E.coli It/st Not Detected (Not Detect); Giardia lamblia Not Detected (Not Detect); Norovirus GI/GII Not Detected (Not Detect); Plesiomonsa shigelloides Not Detected (Not Detect); Rotavirus A Not Detected (Not Detect); Salmonella Not Detected (Not Detect); Sapovirus Not Detected (Not Detect); Shiga-like toxin-prod E.coli Not Detected (Not Detect); Shigella/Enteroinvasive E.coli Not Detected (Not Detect); Vibrio Not Detected (Not Detect); Vibrio cholerae Not Detected (Not Detect); Yersinia enterocolitica Not Detected (Not Detect)
== END ==
LOC: LAB 10:18
PROVIDERS: PCP Internal Medicine; Referring Provider Physician Assistant; Visit Provider Physician Assistant
DX: K51.518 Left sided colitis with other complication (principal); R19.7 Diarrhea, unspecified; U07.1 COVID-19
CPT/HCPCS: 87507

== ENCOUNTER → 2025-02-11 14:09 | Outpatient (CLI) | payer MEDICARE, OTHER, SELFPAY ==
--- NOTE | 2025-02-11 14:11 | DI.RAD.S_ITS ---
PROCEDURE: XR HIP W PEL IF DONE LT 2V INDICATIONS: Pain in left hip TECHNIQUE: AP pelvis with lateral view(s) of the left hip(s). COMPARISON: [facility], CR, XR HIP W PEL IF DONE RT 2V, 02/23/2022, 10:44. FINDINGS: Bones: No fractures or dislocations. 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 Minimal subchondral degenerative change of the femoral head and acetabulum noted. Pelvic ring appears intact. No suspicious bony lesions. Soft tissues: The visualized bowel gas pattern is normal. No suspicious soft tissue calcifications. IMPRESSION: Degenerative change of the left hip without evidence of acute bony abnormality. Dictated by: Freddy Thompson M.D. on 02/12/2025 at 2:05 Approved by: Freddy Thompson M.D. on 02/12/2025 at 2:06
== END ==
PROVIDERS: PCP Family Medicine; Referring Provider Family Medicine; Visit Provider Family Medicine
DX: M25.552 Pain in left hip (principal)
CPT/HCPCS: 73502

== ENCOUNTER → 2025-08-13 11:17 | Outpatient (CLI) | payer MEDICARE, OTHER, SELFPAY ==
[2025-08-13 12:45] LABS: Appearance Urine UA CLEAR; Bilirubin Urine UA NEGATIVE (NEGATIVE); Color Urine UA YELLOW; Glucose Urine UA NEGATIVE (Negative); Ketones Urine UA NEGATIVE (NEGATIVE); Leukocyte Esterase Urine UA NEGATIVE (NEGATIVE); Nitrite Urine UA NEGATIVE (Negative); Occult Blood Urine UA NEGATIVE (Negative); Protein Urine UA NEGATIVE (Negative); Specific Gravity Urine UA 1.015 (1.000-1.035); Urobilinogen Urine UA 0.2 E.U./dL (0.2)
[2025-08-13 12:49] LABS: Culture Indicated Urine Cult Not Indicated; pH Urine UA 6.0 (4.5-8.0)
== END ==
PROVIDERS: PCP Family Medicine; Referring Provider Urology; Visit Provider Urology
DX: N39.0 Urinary tract infection, site not specified (principal)
CPT/HCPCS: 81001

== ENCOUNTER → 2025-08-14 16:50 | Outpatient (CLI) | payer MEDICARE, OTHER, SELFPAY ==
--- NOTE | 2025-08-14 16:53 | DI.MRI.S_ITS ---
PROCEDURE: MR LUMBAR SPINE WO CON INDICATIONS: right hip pain TECHNIQUE: Noncontrast sagittal T1 spin echo and T2 fast echo, sagittal STIR, and T2 fast spin echo through the lumbar spine. In cases with scoliosis, additional coronal T2 fast spin echo may be performed. COMPARISON: [facility], MR, MR LUMBAR SPINE WO CON, 05/27/2024, 9:22. FINDINGS: Image quality: Excellent. Alignment and Curvature: There is trace anterolisthesis of L4 on L5 measuring 4 mm. Bone Marrow: Marrow is of normal overall signal. Prominent hyperintense STIR endplate changes are present at the inferior endplate of L2 with hypointense central portion on T1 and T2. Less prominent reactive endplate changes are also present at L4-5. No acute vertebral body compression fractures. Spinal Cord: Conus medullaris terminates at the L1-L2 level. Visualized cord demonstrates normal signal and size. Paraspinous Soft Tissues: No paravertebral masses. Discs: Multilevel [id number] disc desiccation most prominent at L4-5. T12-L1: Minimal disc bulge without spinal stenosis or foraminal narrowing. Facet and ligamentum flavum hypertrophy are present. Minimal interval progression. L1-L2: Minimal disc bulge without spinal stenosis. Minimal left foraminal narrowing slightly progressive. Facet and ligamentum flavum hypertrophy are present. L2-L3: Mild disc bulge with mild spinal stenosis. Mild bilateral foraminal narrowing, minimally progressive. Facet and ligamentum flavum hypertrophy are present. L3-L4: Mild disc bulge with moderate spinal stenosis. Minimal right and mild left foraminal narrowing with facet and ligamentum flavum hypertrophy. L4-L5: Mild disc bulge with severe spinal stenosis and canal compression relatively unchanged. Moderate to severe bilateral foraminal narrowing, left greater than right. No significant nerve root compression. Facet and ligamentum flavum hypertrophy are present. L5-S1: Mild disc bulge with mild spinal stenosis, unchanged. No foraminal narrowing. Facet and ligamentum flavum hypertrophy are present. IMPRESSION: Multilevel degenerative changes most significant at L4-5 as described above. Prominent endplate changes along the inferior endplate of L2. This is suspected to represent a prominent Schmorl's node. However, if there is additional concern for lesion such is a known primary malignancy, contrast study is recommended for further evaluation. Dictated by: Annetta Monahan M.D. on 08/15/2025 at 11:50 Approved by: Annetta Monahan M.D. on 08/15/2025 at 12:17
== END ==
PROVIDERS: PCP Family Medicine; Referring Provider Orthopaedic Surgery Adult Reconstructive Orthopaedic Surgery; Visit Provider Orthopaedic Surgery Adult Reconstructive Orthopaedic Surgery
DX: M25.551 Pain in right hip (principal); M47.816 Spondylosis without myelopathy or radiculopathy, lumbar region; M47.817 Spondylosis without myelopathy or radiculopathy, lumbosacral region
CPT/HCPCS: 72148

== ENCOUNTER → 2025-09-17 10:00 | Outpatient (CLI) | payer MEDICARE, OTHER, SELFPAY ==
[2025-09-17 10:55] LABS: Appearance Urine UA CLEAR; Bilirubin Urine UA NEGATIVE (NEGATIVE); Color Urine UA YELLOW; Glucose Urine UA NEGATIVE (Negative); Ketones Urine UA NEGATIVE (NEGATIVE); Leukocyte Esterase Urine UA NEGATIVE (NEGATIVE); Nitrite Urine UA NEGATIVE (Negative); Occult Blood Urine UA NEGATIVE (Negative); Protein Urine UA NEGATIVE (Negative); Specific Gravity Urine UA 1.010 (1.000-1.035); Urobilinogen Urine UA 0.2 E.U./dL (0.2)
[2025-09-17 11:00] LABS: pH Urine UA 5.5 (4.5-8.0)
[2025-09-17 11:05] LABS: Culture Indicated Urine Cult Not Indicated
== END ==
PROVIDERS: PCP Family Medicine; Visit Provider Obstetrics & Gynecology Gynecology
DX: N39.3 Stress incontinence (female) (male) (principal); N32.81 Overactive bladder; N39.41 Urge incontinence
CPT/HCPCS: 81001

== ENCOUNTER → 2025-09-17 14:20 | Outpatient (CLI) | payer MEDICARE, OTHER, SELFPAY ==
--- NOTE | 2025-09-17 14:21 | DI.CT.S_ITS ---
PROCEDURE: CT CHEST WO CON INDICATIONS: Chronic restrictive lung disease TECHNIQUE: Noncontrast 5 mm thick sections acquired from the pulmonary apices to the posterior costophrenic angles. 1 mm lung window, 5 mm thick coronal and sagittal and 7 mm axial MIP reformats were then acquired. For radiation dose reduction, the following was used: automated exposure control, adjustment of mA and/or kV according to patient size. COMPARISON: [facility], CT, CT CHEST WO CON, 01/09/2020, 13:56. FINDINGS: Image quality: Diagnostic. Lower Neck: No enlarged lymph nodes. Thyroid: No thyroid nodules which require sonographic follow up, per consensus guidelines. Axillae: No enlarged lymph nodes. Chest Wall: Unremarkable. Bones: Multilevel degenerative changes of the spine. Lungs and Pleura: No pneumothorax or pleural effusions. Subtle patchy areas of mild ground-glass. Mild diffuse interlobular septal thickening. Few micro nodules measuring less than 3 mm, for example within the left lower lobe (3/168). Heart: Heart size is normal. Severe coronary artery calcifications. Small pericardial effusion. Thoracic Vessels: The aorta and pulmonary arteries demonstrate normal size. Atherosclerotic vascular calcifications. Mediastinum and Yane: No enlarged lymph nodes. Esophagus: No wall thickening. No hiatal hernia. Upper Abdomen: Visualized upper abdomen solid organs and bowel loops appear normal. IMPRESSION: 1. Subtle patchy areas of mild ground-glass, may be infectious or inflammatory in etiology. Mild diffuse interlobular septal thickening, correlate for mild pulmonary edema. 2. Few nonspecific pulmonary micro nodules, optional [address] chest can be obtained if patient is high risk. 3. Severe coronary artery calcifications. Dictated by: Steven Santana M.D. on 09/17/2025 at 15:23 Approved by: Steven Santana M.D. on 09/17/2025 at 15:30
== END ==
PROVIDERS: PCP Family Medicine; Referring Provider Family Medicine; Visit Provider Family Medicine
DX: J98.4 Other disorders of lung (principal); I25.10 Atherosclerotic heart disease of native coronary artery without angina pectoris; I31.39 Other pericardial effusion (noninflammatory); N39.3 Stress incontinence (female) (male); N32.81 Overactive bladder; N39.41 Urge incontinence
CPT/HCPCS: 71250; 81001